=== PATIENT | female | born 1975 | race Caucasian/White ===

== ENCOUNTER 2017-04-15 15:39 | Observation (INO) ==
--- NOTE | 2017-04-15 15:59 | Emergency Department Note ---
Disposition Clinical Impression: Anginal equivalent Shoulder pain Qualifiers: Laterality: left Chronicity: acute Qualified Code(s): M25.512 - Pain in left shoulder Disposition: Admitted As Inpatient Condition: Good Referrals: Piero Hill MD [Primary Care Provider] - Forms: ED Satisfaction Letter Time of Disposition: 17:57 General Adult HPI - General Chief complaint: ED Chest Pain Stated complaint: dizziness, shoulder pain Time Seen by Provider: 04/15/17 15:46 Source: patient Mode of arrival: ambulatory Limitations: no limitations Nursing Notes Reviewed: Yes Vital Signs Reviewed: Yes - History of Present Illness HPI Narrative: 41-year-old with a history of previous MN in 2008 who comes in today stating not feeling well had some left shoulder pain. Patient states she's also been dizzy feels like the room is spinning does not feel like she is going to pass out. No History of blood clots. Pt Subjective Complaint: Dizziness left shoulder pain Onset (ago): day(s) Location: left, upper extremity Radiation: non-radiation Pain Scale: 3 Quality: aching Consistency: intermittent Improves with: nothing Worsens with: nothing - Related Data Home Medications Medication Instructions Recorded Confirmed Lipitor 12/26/15 Prozac 12/26/15 Wellbutrin 12/26/15 Advil 04/15/17 Aleve 04/15/17 Tylenol 04/15/17 Xanax 04/15/17 04/15/17 Allergies Allergy/AdvReac Type Severity Reaction Status Date / Time meperidine [From Demerol] Allergy See Verified 04/15/17 15:44 Comments All systems ED: reviewed and negative except as stated. Constitutional: Denies: fever, chills, weakness, weight change Eyes: Denies: eye pain, eye discharge, vision change ENT ED: Denies: ear pain, throat pain, dental pain, hearing loss, epistaxis, congestion, dysphagia Cardiovascular: Denies: chest pain, palpitations, dyspnea on exertion, edema, syncope Respiratory: Denies: cough, dyspnea, wheezes, hemoptysis, stridor Gastrointestinal: Denies: abdominal pain, nausea, vomiting, diarrhea, constipation, hematemesis, melena, hematochezia Genitourinary: Denies: dysuria, frequency, hematuria, discharge Musculoskeletal: Reports: arthralgia. Denies: back pain, neck pain, myalgia Integumentary: Denies: rash, abrasion, lesions Neurological: Denies: headache, weakness, numbness, paresthesias, confusion, abnormal gait, vertigo Psychiatric: Denies: anxiety, depression, suicidal thoughts, homicidal thoughts , auditory hallucinations, visual hallucinations Endocrine: Denies: fatigue Hematological/Lymphatic: Denies: easy bleeding, easy bruising Allergic/Immunologic: Denies: facial swelling, urticaria Past Medical History - Past Medical History Medical history: Reports: coronary artery disease, myocardial infarction Surgical history: Reports: non-contributory Psychiatric history: Reports: anxiety, depression - Social History Smoking Status: Never smoker Smokeless Tobacco Status: No Alcohol use: Reports: none Drug use: Reports: none Physical Exam - General Limitations: no limitations General appearance: alert, in no apparent distress - Head Head exam: atraumatic, normocephalic, normal inspection - Eye Eye exam: Present: normal appearance - ENT ENT exam: normal exam, normal oropharynx, mucous membranes moist - Neck Neck exam: Present: normal inspection, full ROM, trachea midline - Chest Chest inspection: Present: normal inspection, symmetric chest wall rise - Respiratory Respiratory exam: Present: normal lung sounds bilaterally - Cardiovascular Cardiovascular exam: Present: regular rate, normal rhythm, normal heart sounds - Abdominal Exam Abdominal exam: Present: soft, Non-Tender. Absent: tenderness, distention, guarding, rebound, rigidity - Extremities Exam Extremities exam: Present: normal inspection, full ROM. Absent: tenderness, pedal edema - Expanded Lower Extremity Exam Neurovascular/Tendon exam: Absent: motor deficit, sensory deficit, tendon deficit Gait: observed and normal - Back Exam Back exam: Present: normal inspection, full ROM. Absent: tenderness - Neurological Exam Neurological exam: Present: alert, oriented X3 - Psychiatric Psychiatric exam: Present: normal affect, normal mood - Skin Skin exam: Present: warm, dry, intact, normal color Course - Reevaluation(s) Reevaluation #1: 41-year-old female who has shoulder pain and dizziness. Patient had an MN in the past Time: 18:37 - Consultations Consultation #1: Discussed with Dr. Dumont, admit. Time: 18:38 Vital Signs Temperature 98.4 F 04/15/17 15:40 Pulse Rate 90 04/15/17 15:40 Respiratory Rate 16 04/15/17 15:40 Blood Pressure 166/87 04/15/17 15:40 O2 Sat by Pulse Oximetry 100 04/15/17 15:40 Temperature 98.4 F 04/15/17 15:40 Pulse Rate 84 04/15/17 17:01 Respiratory Rate 18 04/15/17 17:01 Blood Pressure 156/78 04/15/17 17:01 O2 Sat by Pulse Oximetry 98 04/15/17 17:01 Oxygen Delivery Oxygen Delivery Room Air Medical Decision Making - Lab Data Lab results reviewed: Yes I reviewed the patient's lab results. Result diagrams: 04/15/17 16:15 04/15/17 16:15 Lab Results 04/15/17 04/15/17 04/15/17 Range/Units 16:15 16:15 16:15 WBC 6.0 (4.3-11.1) K/mcL RBC 4.24 (3.82-4.97) M/mcL Hgb 12.6 (11.5-15.4) g/dL Hct 38.2 (35.3-44.9) % MCV 90.1 (83.0-100.0) fL MCH 29.7 (28.0-33.3) pg MCHC 33.0 (31.6-35.5) g/dL RDW 12.7 (11.5-14.5) % Plt Count 223 (140-400) K/mcL MPV 10.8 (9.4-12.4) fL Immature Gran % 0.2 (0-4) % Seg Neutrophils % 63.2 % Lymphocytes % 26.5 % Monocytes % 7.8 % Eosinophils % 1.8 % Basophils % 0.5 % Neutrophils # 3.8 (1.6-8.9) K/mcL Lymphocytes # 1.6 (0.6-4.6) K/mcL Monocytes # 0.5 (0.0-1.3) K/mcL Eosinophils # 0.1 (0.0-0.6) K/mcL Basophils # 0.0 (0.0-0.2) K/mcL PT 11.3 (9.4-12.1) Seconds INR 1.0 APTT 28.5 (26.0-36.0) Seconds D-Dimer 315 (0-500) ng/mLFEU Sodium (136-145) mEq/L Potassium (3.5-4.5) mEq/L Chloride (98-109) mEq/L Carbon Dioxide (19-29) mEq/L BUN (7-20) mg/dL Creatinine (0.57-1.11) mg/dL Est GFR ( Amer) (> 60) Est GFR (Non-Af Amer) (> 60) BUN/Creatinine Ratio (6-26) Glucose (70-99) mg/dL Calculated Osmolality (280-300) Calcium (8.6-10.8) mg/dL Troponin I (0-0.03) ng/mL B-Natriuretic Peptide 19 (0-100) pg/mL 04/15/17 04/15/17 Range/Units 16:15 16:15 WBC (4.3-11.1) K/mcL RBC (3.82-4.97) M/mcL Hgb (11.5-15.4) g/dL Hct (35.3-44.9) % MCV (83.0-100.0) fL MCH (28.0-33.3) pg MCHC (31.6-35.5) g/dL RDW (11.5-14.5) % Plt Count (140-400) K/mcL MPV (9.4-12.4) fL Immature Gran % (0-4) % Seg Neutrophils % % Lymphocytes % % Monocytes % % Eosinophils % % Basophils % % Neutrophils # (1.6-8.9) K/mcL Lymphocytes # (0.6-4.6) K/mcL Monocytes # (0.0-1.3) K/mcL Eosinophils # (0.0-0.6) K/mcL Basophils # (0.0-0.2) K/mcL PT (9.4-12.1) Seconds INR APTT (26.0-36.0) Seconds D-Dimer (0-500) ng/mLFEU Sodium 141 (136-145) mEq/L Potassium 3.6 (3.5-4.5) mEq/L Chloride 110 H (98-109) mEq/L Carbon Dioxide 23 (19-29) mEq/L BUN 11 (7-20) mg/dL Creatinine 0.98 (0.57-1.11) mg/dL Est GFR ( Amer) > 60 (> 60) Est GFR (Non-Af Amer) > 60 (> 60) BUN/Creatinine Ratio 11 (6-26) Glucose 109 H (70-99) mg/dL Calculated Osmolality 292 (280-300) Calcium 8.8 (8.6-10.8) mg/dL Troponin I 0.00 (0-0.03) ng/mL B-Natriuretic Peptide (0-100) pg/mL - Radiology Data Radiology results reviewed: Yes I reviewed the patient's radiology results. Chest X-Ray 04/15/17 15:56 IMPRESSION: Negative chest. D/ / 04/15/2017 16:22:35 Iban Pantoja MD / kalin Interpreting Provider: Iban Pantoja MD - EKG Data EKG #1 EKG attestation: Yes I reviewed and interpreted this EKG. EKG shows normal: sinus rhythm Rate: normal Rhythm: NSR Interpretation: no acute changes
[2017-04-15 16:52] LABS: Basophils % 0.5 %; Eosinophils # 0.1 K/mcL (0.0-0.6); Eosinophils % 1.8 %; Hematocrit 38.2 % (35.3-44.9); Hemoglobin 12.6 g/dL (11.5-15.4); Immature Granulocytes % 0.2 % (0-4); Lymphocytes # 1.6 K/mcL (0.6-4.6); Lymphocytes % 26.5 %; Mean Corpuscular Hemoglobin 29.7 pg (28.0-33.3); Mean Corpuscular Volume 90.1 fL (83.0-100.0); Mean Platelet Volume 10.8 fL (9.4-12.4); Monocytes # 0.5 K/mcL (0.0-1.3); Monocytes % 7.8 %; Neutrophils # 3.8 K/mcL (1.6-8.9); Platelet Count 223 K/mcL (140-400); Red Blood Count 4.24 M/mcL (3.82-4.97); Red Cell Distribution Width 12.7 % (11.5-14.5); Segmented Neutrophils % 63.2 %
[2017-04-15 17:00] LABS: Prothrombin Time 11.3 Seconds (9.4-12.1)
[2017-04-15 17:02] LABS: Activated Partial Thrombo Time 28.5 Seconds (26.0-36.0)
[2017-04-15 17:07] LABS: BUN/Creatinine Ratio 11 (6-26); Blood Urea Nitrogen 11 mg/dL (7-20); Calcium 8.8 mg/dL (8.6-10.8); Carbon Dioxide 23 mEq/L (19-29); Chloride 110 mEq/L (98-109); Glucose 109 mg/dL (70-99); Osmolality,Calculated 292 (280-300); Potassium 3.6 mEq/L (3.5-4.5); Sodium 141 mEq/L (136-145); eGFR For African Americans > 60 (> 60); eGFR For Non-African Americans > 60 (> 60)
[2017-04-15] MEDS ORDERED: Ondansetron 4 MG/2 ML VIAL IVP ONE (18:14)
[2017-04-15] MEDS ORDERED: *HR* HYDROcodone/Acet 5/325 mg TABLET PO PRN (21:49)
[2017-04-15] MEDS ORDERED: Ondansetron ODT 4 MG TAB.RAPDIS SL PRN (21:49)
[2017-04-15] MEDS ORDERED: Naloxone 0.4 MG/ML INJ IVP PRN (21:49)
--- NOTE | 2017-04-15 22:07 | Internal Med History&Physical ---
Date of Encounter: 04/15/17 Time of Encounter: 22:00 Assessment and Plan (1) Atypical chest pain Current visit: No Status: Acute 1 patient has past history of AR with bilateral arm numbness as angina equivalent. For the past week patient has been experiencing shoulder blade as well as left shoulder pain diaphoresis - which is similar to previous symptoms. First cardiac troponin was negative with continue to cycle cardiac troponins 2 we will obtain cardiac echo 3 continuous cardiac monitoring 4 continue with aspirin 5 nitroglycerin as needed for chest pain 6 oxygen as needed to maintain SPO2 greater than 92% 7 we will obtain lipid profile in a.m. 8. Nothing by mouth after midnight-cardiac stress in a.m. (2) Anxiety and depression Current visit: Yes Status: Chronic We will continue with home medications (3) DVT prophylaxis Current visit: Yes Status: Acute 1 Lovenox (4) Hypercholesterolemia Current visit: Yes Status: Acute 1 will obtain lipid profile 2 we will continue his Lipitor Internal Medicine - H&P: HPI Chief complaint: Shoulder pain Admitted From: Emergency Dept Plans for Post Hospital Care: Home History of present illness: Ms. Bauer is a 41 year old female past medical history AR in the past GERD anxiety depression. Information obtained from medical records as well as patient. According to past medical records patient did have a ST elevation microinfarction secondary to coronary vasospasm 2009. 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 On 2009, the day of the AR, patient had indigestion bilateral arm numbness nausea and diaphoresis. For the past week the patient has been experiencing achiness between her shoulder blades radiating to her left shoulder as well as some nausea and lightheadedness. Yesterday she began to experience some diaphoresis she denies any palpitations shortness of breath. The pain is aggravated by exertion there are no relieving factors presently rates the pain 3 out of 10 she became concerned because the pain was not relieved who was very similar to her previous AR. Patient states she did have a cardiac stress test 3 years ago which was negative at that time She presented to the ER for the above complaints. Lab work was obtained and was unremarkable troponin was 0 chest x-ray was negative no ST-T wave abnormalities. She was given Zofran for her nausea she is admitted for further evaluation. Presently patient rates her pain 3 out of 10 describing achiness in her left shoulder she denies any shortness of breath dictations. Lungs sounds are clear heart sounds S1 and S2 with no rubs or clicks gallops or murmurs noted no extremity edema. I reviewed this case with Dr Jimenez who agrees with plan Past Med Surg Social Fam HX - Past Medical History Medical history: coronary artery disease, myocardial infarction Psychiatric history: anxiety, depression - Past Surgical History Surgical History: non-contributory - Social History Smoking Status: Never smoker Smokeless Tobacco Status: No Alcohol use: none Drug use: none - Family History Mother Living Status: Still Living Hx Family Cardiac Disorders: Yes (mitral valve prolapse) Internal Medicine - H&P: Meds Lipitor 12/26/15 [History] Prozac 12/26/15 [History] Wellbutrin 12/26/15 [History] Advil 04/15/17 [History] Aleve 04/15/17 [History] Tylenol 04/15/17 [History] Xanax 04/15/17 [History] Allergies meperidine [From Demerol] Allergy (Verified 04/15/17 15:44) See Comments All Systems PM: A 10-system review of systems was performed and is negative for pertinent findings except as documented above in the HPI. - Constitutional Constitutional: anorexia, no chills, no fever(s), no night sweats - Cardiovascular Cardiovascular ROS IM: diaphoresis, lightheadedness - Respiratory Respiratory: no cough, no dyspnea, no wheezing, no excessive phlegm production - Gastrointestinal Gastrointestinal: no abdominal pain, no diarrhea, no hematemesis, no hematochezia, no melena, no nausea, no vomiting - Genitourinary Genitourinary: no change in urinary stream, no dysuria, no flank pain, no hematuria - Musculoskeletal Musculoskeletal ROS IM: arthralgias, numbness - Integumentary Integumentary IM: no rash, no unusual bruising - Neurological Neurological ROS: no confusion, no convulsions, no focal weakness, no numbness, no tingling, no tremor(s) - Psychiatric Psychiatric: anxiety, depression - Constitutional Vitals: Temp Pulse Resp BP Pulse Ox 98.9 F 66 14 138/69 97 04/15/17 19:46 04/15/17 19:46 04/15/17 19:46 04/15/17 19:46 04/15/17 19:46 General appearance: Present: A&O X 3, answers questions appropriately - Head Head exam: Present: atraumatic, normocephalic - Eye Eye exam: Present: PERRL, conjuntiva pink, sclera anicteric Pupils: Present: PERRL - Respiratory Respiratory exam: Present: CTAB. Absent: accessory muscle use, rales, rhonchi, wheezes - Cardiovascular Cardiovascular exam: Present: RRR, +S1, +S2. Absent: diastolic murmur, gallop, rubs, systolic murmur - GI/Abdominal GI/Abdominal exam: Present: normal bowel sounds, soft, no peritoneal signs. Absent: distended, tenderness - Extremities Exam Extremities exam: Present: warm, radial pulses palpable and symetrical. Absent : calf tenderness, cyanotic, pedal edema - Expanded Upper Extremities Exam Shoulder exam: Present: tenderness - Neurological Exam Neurological exam: Present: CN II-XII intact, oriented X3, no focal deficits. Absent: pronater drift, facial droop, speech deficit - Skin Skin exam: Present: dry, intact Internal Med - H&P Results - Labs CBC & Chem 7: 04/15/17 16:15 04/15/17 16:15 - EKG Data EKG shows normal: sinus rhythm - EKG Data Prior EKG available for review: yes When compared to previous EKG: there are significant changes - Diagnostic Studies Other Images Additional comments: Chest X-Ray 04/15/17 15:56 IMPRESSION: Negative chest. D/ / 04/15/2017 16:22:35 Iban Pantoja MD / kalin Interpreting Provider: Iban Pantoja MD
[2017-04-15] MEDS ORDERED: Aspirin 325 MG TABLET PO ONE (22:10)
[2017-04-15] MEDS ORDERED: Nitroglycerin 0.4 MG TAB.SUBL SL PRN (22:11)
--- NOTE | 2017-04-15 23:40 | Event Note ---
Date of Encounter: 04/15/17 Time of Encounter: 23:10 Patient seen and evaluated along with nurse practitioner. I agree with detailed history, assessment and plan according to nurse practitioner's H&P, except to the extent set forth below. 41-year-old female with history of chest pain related to coronary spasm, presents with complaints of a left-sided upper back and shoulder pain associated with diaphoresis, shortness of breath, nausea, which are similar to previous episodes of chest pain due to coronary vasopasm. Patient seen and examined at bedside. She is alert, oriented 3. Chest-S1, S2 heard. Lungs are clear to auscultation Labs reviewed-CBC, BMP within normal limits. Troponin, d-dimer normal. EKG shows normal sinus rhythm, 0.[address] depression in lead V3 Chest x-ray shows no acute abnormality Chest pain-to rule out ACS. Review of previous records show patient had episodes of chest pain in 2009 and she was noted to have Prinzmetal angina after undergoing stress test, cardiac catheterization. She was started on Imdur and statin and followed with cardiology as outpatient for a short while, not at this time. Continue telemetry monitoring, cycle troponins. We will obtain nuclear stress test tomorrow, hold nitroglycerin and Imdur until after the test. Start aspirin and continue statin. Check lipid profile.
[2017-04-16 05:20] LABS: Basophils % 0.6 %; Eosinophils # 0.1 K/mcL (0.0-0.6); Eosinophils % 2.8 %; Hematocrit 36.9 % (35.3-44.9); Hemoglobin 12.3 g/dL (11.5-15.4); Immature Granulocytes % 0.2 % (0-4); Lymphocytes # 1.7 K/mcL (0.6-4.6); Lymphocytes % 34.6 %; Mean Corpuscular HGB Conc 33.3 g/dL (31.6-35.5); Mean Corpuscular Hemoglobin 30.5 pg (28.0-33.3); Mean Corpuscular Volume 91.6 fL (83.0-100.0); Mean Platelet Volume 11.1 fL (9.4-12.4); Monocytes # 0.4 K/mcL (0.0-1.3); Monocytes % 8.2 %; Neutrophils # 2.7 K/mcL (1.6-8.9); Platelet Count 212 K/mcL (140-400); Red Blood Count 4.03 M/mcL (3.82-4.97); Red Cell Distribution Width 12.9 % (11.5-14.5); Segmented Neutrophils % 53.6 %
[2017-04-16 05:35] LABS: BUN/Creatinine Ratio 17 (6-26); Blood Urea Nitrogen 16 mg/dL (7-20); Calcium 8.9 mg/dL (8.6-10.8); Carbon Dioxide 22 mEq/L (19-29); Chloride 111 mEq/L (98-109); Chol/HDL Ratio 3.7 (0-4.9); Cholesterol 181 mg/dL (< 200); Glucose 93 mg/dL (70-99); HDL Cholesterol 49 mg/dL (40-59); LDL Cholesterol,Calculated 109 mg/dL (0-99); Magnesium 2.3 mg/dL (1.6-2.6); Osmolality,Calculated 293 (280-300); Potassium 3.9 mEq/L (3.5-4.5); Sodium 141 mEq/L (136-145); Triglycerides 117 mg/dL (< 150); eGFR For African Americans > 60 (> 60); eGFR For Non-African Americans > 60 (> 60)
[2017-04-16] MEDS: Acetaminophen 325 MG TABLET PO PRN ×2 (10:39→20:45)
[2017-04-16] MEDS: Aspirin 81 MG TAB.CHEW PO SCH (10:39)
--- NOTE | 2017-04-16 13:12 | Nuclear Medicine Stress Report ---
Exercise Nuclear Stress Name: Stephany Bauer Date of Study: 04/16/2017 Date: 1975 Ht: 67.0 in Medical Record#: [id number] Age: 41 Wt: 180.0 lb Gender: Female Order #: [id number] Location: [facility] IP Room: [facility] Supervising Provider: Stewart Morris CNP Reading Physician: Michael Weber MD, [facility] Ordering Physician: Lydia Schneider CNP Primary Care Physician: Piero Hill MD Stress Technologist: Jarrod Cody RRT, CCT Property Field Inspector: Hi Elias Indications: Chest Pain Impression: Perfusion imaging was negative for ischemia or infarct. Exercise ECG was positive for ischemia - 1mm inferior changes Exercise capacity was average. Normal hemodynamic response. Patient had no chest pain with stress. No arrhythmias noted with stress. Gated EF = 65%. There is no evidence of TID. History: Hypercholesteremia Stress Test Summary: Stress Test Type: Treadmill Protocol: Michael Baseline Information: Initial Heart Rate: 71 Blood Pressure: 136/90 Stress Information: Stress Time: 9 min 00 sec Test Terminated Due to (primary): Dyspnea Maximum Blood Pressure: 180/90 Maximum Heart Rate: 160 Percent Maximum Heart Rate Achieved: 90 Double Product: 28,800 METS Reached: 10.1 Nuclear Summary: SPECT myocardial perfusion imaging using Tc99m Sestamibi given intravenously was performed at rest and following cardiac stress testing. The resting images were obtained following initial dose of 10.3 mCi. Following stress an additional dose of 32.1 mCi was given at peak exercise or 30 seconds post regadenoson infusion. Medication Given: Time Medication Dose Units Route Findings: Stress Note * Resting ECG demonstrated normal sinus rhythm. * No baseline arrhythmias were noted. * Exercise ECG is positive for ischemia in leads II-III-AVF * No arrhythmias were noted during stress. * The exercise capacity was average. Study Quality * Study quality is average. Gated EF % * Gated EF = 65%. Left Ventricle * The left ventricle is not dilated. NORMALS * Normal wall motion. * All other segmental perfusion normal in rest. * All other segmental perfusion normal in stress. Apical Perfusion Rest * The apex segment shows a mild reduction in perfusion. Apical Perfusion Stress * The apex segment shows a mild reduction in perfusion. TID * No evidence of transient ischemic dilatation. Updated by Michael Weber MD, FACC on 04/16/2017 1:02:36 PM electronically signed on 04/16/2017 1:08:14 PM with status of Final
--- NOTE | 2017-04-16 13:49 | ECHO - Doppler Report ---
Echocardiogram Name: Stephany Bauer Date of Study: 04/16/2017 Date: 1975 Ht: 67.0 in Medical Record#: [id number] Age: 41 Wt: 178.0 lb Gender: Female BSA: 1.92 Order #: [id number] Location: [facility] Room #: [id number] Reading Physician: Michael Weber MD, [facility] Marketing Sales Manager: Watson Cazares RDCS Ordering Physician: Gracy Santamaria CNP Primary Physician: Piero Hill MD Indications: Chest pain Impressions: No pulmonary hypertension. LVEF 60-65%. Indeterminate diastolic function. The aortic arch is mildly dilated - 4.2 cm. Suspicious for aortic dissection flap No significant valvular dysfunction. Findings relayed to ordering team, recommend CT chest to evaluate Left Ventricular Wall Motion: Rest Echo Findings All wall segments showed normal motion. Findings: Study Quality * Technically adequate exam. Right Ventricle * Normal right ventricular structure and function. Left Atrium * Normal left atrial size. Right Atrium * Normal right atrial size. Aortic Valve * Trileaflet aortic valve with normal function. Interatrial Septum * No evidence of PFO by color Doppler. Pericardium * The pericardium appears normal. ECG Findings * Normal sinus rhythm. Tricuspid Valve * Estimated RA pressure is 3-5 mmHg. * No pulmonary hypertension. * No tricuspid stenosis. * Trace tricuspid regurgitation. * Estimated RVSP is 25 mmHg. Left Ventricle * LVEF 60-65%. * Indeterminate diastolic function. Pulmonic Valve * Pulmonic valve is not well visualized. * No pulmonic stenosis. * No pulmonic regurgitation. Mitral Valve * Normal mitral valve structure. * No mitral stenosis. * Trace mitral regurgitation. Aorta * The aortic arch is mildly dilated 4.2 cm. Suspicion for aortic dissection flap History Hypercholesteremia Family History of CAD Myocardial Infarction Measurements: BP: 125/ 75 2D Normal Values RVIDd: 2.67 cm <2.7 cm IVSd: .84 cm 0.6 - 1.0 cm LVIDd: 5.14 cm 3.7 - 5.6 cm LVPWd: .78 cm 0.6 - 1.1 cm LVIDs: 3.44 cm 1.5 - 3.6 cm AO: 2.70 cm < 4.0 cm LA: 2.90 cm 2.0 - 4.0cm %FS: 33.10 cm >25 % LA volume: 57 Mitral Valve Peak E:.85 m/sec Peak A:.73 m/sec E/A Ratio:1.2 Peak E' Lat Malachi:14.8 cm/s Peak E' Med Malachi:8.05 cm/s E/E' Lat Ratio:5.7 E/E' Med Ratio:10.5 Tricuspid Valve TV Regurg Peak Grad: 25.00mmHg TV Regurg Peak Malachi: 2.35m/sec Updated by Michael Weber MD, [facility] on 04/16/2017 1:33:28 PM electronically signed on 04/16/2017 1:42:48 PM with status of Final Wall Motion [place]: 1=Normal, 2=Hypokinesis, 3=Akinesis, 4=Dyskinesis, 5=Aneurysmal, 6=Hyperkinetic, X=Not Visualized (Blank)=Missing
--- NOTE | 2017-04-16 17:01 | Internal Med Progress Note ---
Date of Encounter: 04/16/17 Time of Encounter: 14:00 (and 1630) - Assessment and plan (1) Atypical chest pain Current Visit: No Status: Acute Assessment and plan: Patient complaining of left shoulder pain. Suspicious for anginal equivalent. Chest x-ray negative. Echocardiogram revealing ejection fraction of 60-65% but with dilated aortic arch and the suspicion for aortic dissection flap. CTA was obtained which ruled out a dissection. Stress test also abnormal with ischemic changes with the exercise ECG. Cardiology has been brought on board and will see the patient in the morning. Nothing by mouth at midnight for possible heart catheter tomorrow. 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 Her pain is currently controlled with acetaminophen. Awaiting cardiology recommendations in the morning. ITS Impressions Chest X-Ray 04/15/17 15:56 IMPRESSION: Negative chest. D/ / 04/15/2017 16:22:35 Iban Pantoja MD / kalin Interpreting Provider: Iban Pantoja MD Abdomen/Pelvis CTA 04/16/17 13:46 IMPRESSION: No aortic dissection. No acute abnormality in the aorta, chest, abdomen or pelvis. D/ / Chintan Herzog MD / Chintan Herzog MD Interpreting Provider: Chintan Herzog MD Chest CTA 04/16/17 13:46 IMPRESSION: No aortic dissection. No acute abnormality in the aorta, chest, abdomen or pelvis. D/ / Chintan Herzog MD / Chintan Herzog MD Interpreting Provider: Chintan Herzog MD Echocardiogram impressions: No pulmonary hypertension. LVEF 60-65%. Indeterminate diastolic function. The aortic arch is mildly dilated-4.2 cm. Suspicious for aortic dissection flap. No significant valvular dysfunction. Recommend CT chest to evaluate. Exercise nuclear stress impressions: Perfusion imaging was negative for ischemia or infarct. Exercise ECG was positive for ischemia-1 mm inferior changes. Exercise capacity was average. Normal hemodynamic response. Patient had no chest pain with stress. No arrhythmias noted with stress. Elisa ejection fraction equals 65%. There is no evidence of TID. (2) Anginal equivalent Current Visit: Yes Status: Suspected (3) Abnormal stress ECG Current Visit: Yes Status: Acute (4) Abnormal echocardiogram Current Visit: Yes Status: Acute (5) Shoulder pain Current Visit: Yes Status: Acute (6) DVT prophylaxis Current Visit: Yes Status: Acute Assessment and plan: Subcutaneous heparin (7) Hyperlipidemia Current Visit: No Status: Chronic Assessment and plan: Lipid panel unremarkable. Recommend continue statin and low-cholesterol diet. Qualifiers: Hyperlipidemia type: unspecified Qualified Code(s): E78.5 - Hyperlipidemia , unspecified (8) Anxiety and depression Current Visit: Yes Status: Chronic - Subjective Interval history: Patient is seen and examined. On examination, patient sitting upright in bed conversing with her . She continues to complain of left shoulder pain. She is endorsing a normal appetite and denies shortness of breath at this time. - Constitutional Vitals: Temp Pulse Resp BP Pulse Ox 98.4 F 76 16 138/74 99 04/16/17 14:43 04/16/17 14:43 04/16/17 14:43 04/16/17 14:43 04/16/17 14:43 General appearance: Present: A&O X 3, pleasant, no acute distress, answers questions appropriately - Head Head exam: Present: atraumatic, normocephalic - Eye Eye exam: Present: PERRL, conjuntiva pink, sclera anicteric Pupils: Present: PERRL - Neck Neck exam general surgery: Present: supple, trachea midline. Absent: lymphadenopathy - Respiratory Respiratory exam: Present: CTAB. Absent: accessory muscle use, rales, respiratory distress, rhonchi, wheezes - Cardiovascular Cardiovascular exam: Present: RRR, +S1, +S2. Absent: diastolic murmur, gallop, rubs, systolic murmur - GI/Abdominal GI/Abdominal exam: Present: normal bowel sounds, soft, no peritoneal signs. Absent: distended, tenderness - Extremities Exam Extremities exam: Present: warm, radial pulses palpable and symetrical. Absent : calf tenderness, cyanotic, pedal edema - Neurological Exam Neurological exam: Present: alert, CN II-XII intact, normal gait, oriented X3, no focal deficits, strengths equal and symetr throughout. Absent: pronater drift, facial droop, speech deficit - Skin Skin exam: Present: dry, intact, normal color, warm Internal Medicine: Result - Labs CBC & Chem 7: 04/16/17 04:00 04/16/17 04:00 Labs: Short CBC 04/16/17 Range/Units 04:00 WBC 5.0 (4.3-11.1) K/mcL Hgb 12.3 (11.5-15.4) g/dL Hct 36.9 (35.3-44.9) % Plt Count 212 (140-400) K/mcL Neutrophils # 2.7 (1.6-8.9) K/mcL BMP 04/16/17 04:00 Sodium 141 Potassium 3.9 Chloride 111 H Carbon Dioxide 22 BUN 16 Creatinine 0.92 Glucose 93 Calcium 8.9 Cardiac Enzymes 04/15/17 04/16/17 Range/Units 22:29 04:00 Troponin I 0.00 0.00 (0-0.03) ng/mL - ABG Interpretation ABG results: PT/INR, D-dimer PT 11.3 Seconds (9.4-12.1) 04/15/17 16:15 D-Dimer 315 ng/mLFEU (0-500) 04/15/17 16:15 - Impressions Impressions Abdomen/Pelvis CTA 04/16/17 13:46 IMPRESSION: No aortic dissection. No acute abnormality in the aorta, chest, abdomen or pelvis. D/ / Chintan Herzog MD / Chintan Herzog MD Interpreting Provider: Chintan Herzog MD Chest CTA 04/16/17 13:46 IMPRESSION: No aortic dissection. No acute abnormality in the aorta, chest, abdomen or pelvis. D/ / Chintan Herzog MD / Chintan Herzog MD Interpreting Provider: Chintan Herzog MD Consult Discharge Plan - Plan Referrals: Piero Hill MD [Primary Care Provider] -
[2017-04-16] MEDS ORDERED: *HR* Morphine 2 MG/ML SYRINGE IVP PRN (17:04)
[2017-04-16] MEDS ORDERED: ALPRAZolam 0.25 MG TABLET PO PRN (19:52)
--- NOTE | 2017-04-16 20:30 | Electrocardiograph Report ---
[address] [address] Test Date: 2017-04-15 Pat Name: Stephany Bauer Department: 102 Room: 3B44 Gender: F Guest Services Coordinator: : 1975 Requested By: Chad Jerez Order Number: [id number] Reading MD: Michael Weber MD Measurements Intervals [place] Rate: 76 P: 49 [place]: 126 QRS: 35 QRSD: 82 T: 25 QT: 360 QTc: 391 Interpretive Statements SINUS RHYTHM Electronically Signed On 04-16-2017 20:28:41 EDT by Michael Weber MD
[2017-04-16] MEDS: *HR* Heparin 5,000 UNIT/ML VIAL SQ SCH (20:46)
[2017-04-16] MEDS: BuPROPion XL (24 HR) 150 MG TABLET PO SCH (20:46)
[2017-04-17 05:58] LABS: INR 1.1; Prothrombin Time 11.6 Seconds (9.4-12.1)
[2017-04-17] MEDS: *HR* Heparin 5,000 UNIT/ML VIAL SQ SCH ×2 (06:09→14:21)
[2017-04-17 06:11] LABS: BUN/Creatinine Ratio 15 (6-26); Blood Urea Nitrogen 13 mg/dL (7-20); Calcium 8.8 mg/dL (8.6-10.8); Carbon Dioxide 20 mEq/L (19-29); Chloride 110 mEq/L (98-109); Glucose 90 mg/dL (70-99); Osmolality,Calculated 290 (280-300); Potassium 3.6 mEq/L (3.5-4.5); Sodium 140 mEq/L (136-145); eGFR For African Americans > 60 (> 60); eGFR For Non-African Americans > 60 (> 60)
[2017-04-17] MEDS: Acetaminophen 325 MG TABLET PO PRN (06:16)
[2017-04-17] MEDS ORDERED: Cholecalciferol (D-3) 1,000 UNIT TABLET PO SCH (09:00)
--- NOTE | 2017-04-17 10:40 | Cardiology Consult Note ---
Date of Encounter: 04/17/17 Time of Encounter: 10:36 Assessment and Plan (1) Shoulder pain Current Visit: Yes Status: Acute Left shoulder pain ongoing for 1 week--constant, not associated with exertion. Denies chest pain. Reports her left shoulder and arm feel weak. Do not suspect this is a cardiac cause. Would recommend imaging per hospitalist for shoulder complaints. EKG without ischemic changes/improved from prior. Echo EF 60-65%. Stress ECG positive for ischemia-1mm inferior changes, but perfusion imaging negative for ischemia or infarct. Given atypical symptoms and negative perfusion imaging on stress, do not recommend any further cardiac testing at this time. Anticipate sign off once seen and evaluated by Dr. Weber. Will coordinate outpt follow-up. Qualifiers: Laterality: left Chronicity: acute Qualified Code(s): M25.512 - Pain in left shoulder (2) Abnormal stress ECG Current Visit: Yes Status: Acute Stress ECG positive for ischemia-1mm inferior changes, but perfusion imaging negative for ischemia or infarct. Recommend outpt follow-up. No need for invasive evaluation at this time. (3) CAD (coronary artery disease) Current Visit: Yes Status: Acute Hx of LHC in 2008 at [place]. Per [facility] records, mild CAD. Recommend ASA, Statin, BB. Qualifiers: Coronary Disease-Associated Artery/Lesion type: [place] artery [place] vs. transplanted heart: [place] heart Associated angina: angina presence unspecified Qualified Code(s): I25.10 - Atherosclerotic heart disease of [place] coronary artery without angina pectoris Discussion w patient/family: The assessment and plan as outlined above was discussed with the patient and/or family members who expressed understanding and agreement. All questions were answered. Thank you for involving us in the care of your patient. Please call with any questions. I will discuss all the above with Dr. Weber and make changes as necessary. History of Present Illness Consult date: 04/17/17 Requesting physician: Lydia Schneider Consult reason: left shoulder pain, positive stress ECG Chief complaint: left shoulder pain History of present illness: Ms. Bauer is a 41 year old female with PMH of CA in 2009, GERD, anxiety, depression. According to past medical records patient did have a STEMI secondary to coronary vasospasm in 2009. LHC in [place] at that time showed mild CAD-Prinzmetal angina. Pt reports she began experiencing left shoulder pain last week that has been constant, not worsened or improved by anything. She began to experience diaphoresis. Echo resulted and showed EF 60-65%. Stress test resulted yesterday. Perfusion imaging was negative for ischemia or infarct. She did have positive stress ECG changes--1mm inferior. Past Med Surg Social Fam HX - Past Medical History Medical history: coronary artery disease, myocardial infarction Psychiatric history: anxiety, depression - Past Surgical History Surgical History: non-contributory - Social History Smoking Status: Never smoker Smokeless Tobacco Status: No Alcohol use: none Drug use: none - Family History Mother Hx Family Cardiac Disorders: Yes (Mitral Prolapse, HLD, HTN) Medications and Allergies ALPRAZolam [Xanax 0.25 MG Tablet] 0.25 - 0.5 mg PO BID PRN 04/16/17 [History] Acetaminophen [Tylenol] 500 mg PO Q6H PRN 04/16/17 [History] Atorvastatin Calcium [Lipitor] 20 mg PO HS 04/16/17 [History] Bupropion HCl [Wellbutrin Xl] 300 mg PO DAILY 04/16/17 [History] Cholecalciferol (D-3) [Vitamin D] 1,000 unit PO DAILY 04/16/17 [History] FLUoxetine HCl [PROzac] 60 mg PO DAILY 04/16/17 [History] Ibuprofen [Advil] 200 mg PO Q8H PRN 04/16/17 [History] Naproxen Sodium [Aleve] 220 mg PO Q12H PRN 04/16/17 [History] Omeprazole [PriLOSEC] 20 mg PO DAILY 04/16/17 [History] Allergies meperidine [From Demerol] Allergy (Verified 04/15/17 15:44) See Comments All Systems Review: A 10-system review of systems was performed and is negative for pertinent findings except as documented above in the HPI. - Constitutional Constitutional: fatigue - Cardiovascular Cardiovascular: as per HPI, diaphoresis, radiating jaw, neck or arm pain - Gastrointestinal Gastrointestinal: nausea Physical Examination Vital Signs, Last 4 Hours Temp Pulse Resp BP Pulse Ox 04/17/17 07:42 98.4 F 67 16 107/59 98 Vital Signs Temp Pulse Resp BP Pulse Ox 04/17/17 07:42 98.4 F 67 16 107/59 98 04/17/17 03:07 98.2 F 81 16 111/71 98 04/16/17 22:21 98.7 F 74 16 128/73 97 04/16/17 20:30 99 04/16/17 18:28 98.6 F 73 16 132/81 99 04/16/17 14:43 98.4 F 76 16 138/74 99 04/16/17 10:58 98.1 F 73 16 130/79 95 Intake and Output 04/16/17 04/17/17 04/17/17 23:59 07:59 15:59 Other: Meal NPO Weight 82.69 kg Patient Weight 04/17/17 23:59 Weight 82.69 kg General: Conversant, No Apparent Distress HEENT: Atraumatic, Normocephaly, Mucus Membranes Moist Neck: No JVD, Normal carotid pulses Cardiac: Reg Rate and Rhythm, Normal S1 and S2, No Murmur Lungs: Normal Breath Sounds, No Wheeze, Rales, Rhonchi Neuro: Alert and responsive, No focal deficits noted Abdomen: Soft, Non-Tender Skin: No rashes noted on visualized skin Musculoskeletal: No Chest Wall Tenderness Extremities: No Clubbing, No Cyanosis, No Edema, Normal Pulses Results 04/16/17 04:00 04/17/17 05:05 Lab Results 04/17/17 04/17/17 05:05 05:05 INR 1.1 Sodium 140 Potassium 3.6 Chloride 110 H Carbon Dioxide 20 BUN 13 Creatinine 0.86 Glucose 90 Calcium 8.8 BMP 04/17/17 Range/Units 05:05 Sodium 140 (136-145) mEq/L Potassium 3.6 (3.5-4.5) mEq/L Chloride 110 H (98-109) mEq/L Carbon Dioxide 20 (19-29) mEq/L BUN 13 (7-20) mg/dL Creatinine 0.86 (0.57-1.11) mg/dL Glucose 90 (70-99) mg/dL Calcium 8.8 (8.6-10.8) mg/dL Impressions Chest X-Ray 04/15/17 15:56 IMPRESSION: Negative chest. D/ / 04/15/2017 16:22:35 Iban Pantoja MD / kalin Interpreting Provider: Iban Pantoja MD Abdomen/Pelvis CTA 04/16/17 13:46 IMPRESSION: No aortic dissection. No acute abnormality in the aorta, chest, abdomen or pelvis. D/ / Chintan Herzog MD / Chinatn Herzog MD Interpreting Provider: Chintan Herzog MD Chest CTA 04/16/17 13:46 IMPRESSION: No aortic dissection. No acute abnormality in the aorta, chest, abdomen or pelvis. D/ / Chintan Herzog MD / Chintan Herzog MD Interpreting Provider: Chintan Herzog MD Active Medications Acetaminophen (Tylenol) 650 mg PO Q6HR PRN PRN Reason: Mild Pain (1-3) Stop: 10/15/17 21:50 Last Admin: 04/17/17 06:16 Dose: 650 mg Acetaminophen/Hydrocodone Bitart ([place] 5-325 Mg) 1 tab PO Q4HR PRN PRN Reason: Moderate Pain (4-6) Stop: 10/15/17 21:50 Alprazolam (Xanax) 0.25 - 0.5 mg PO BID PRN; Protocol PRN Reason: Anxiety Stop: 10/16/17 19:53 Aspirin (Aspirin) 81 mg PO DAILY [facility] Stop: 10/16/17 09:01 Last Admin: 04/16/17 10:39 Dose: 81 mg Atorvastatin Calcium (Lipitor) 40 mg PO HS [facility] Stop: 10/15/17 22:31 Last Admin: 04/16/17 20:46 Dose: 40 mg Bupropion HCl (Wellbutrin Xl) 300 mg PO DAILY [facility] Stop: 10/16/17 20:01 Last Admin: 04/16/17 20:46 Dose: 300 mg Fluoxetine HCl (Prozac) 60 mg PO DAILY [facility] Stop: 10/17/17 09:01 Heparin Sodium (Porcine) (Heparin) 5,000 unit SQ Q8HCO [facility] Stop: 10/16/17 22:01 Last Admin: 04/17/17 06:09 Dose: 5,000 unit Morphine Sulfate (Morphine Sulfate) 2 mg IVP Q4HR PRN PRN Reason: Severe Pain Stop: 10/16/17 17:05 Naloxone HCl (Narcan) 0.4 mg IVP Q2MIN PRN PRN Reason: Opioid Reversal Stop: 10/15/17 21:50 Omeprazole (Prilosec) 20 mg PO DAILY [facility] PRN Reason: Protocol Stop: 10/17/17 09:01 Ondansetron HCl (Zofran Odt) 4 mg SL Q8HR PRN PRN Reason: Nausea And Vomiting Stop: 10/15/17 21:50 Vitamin D (Vitamin D) 1,000 unit PO DAILY [facility] Stop: 10/17/17 09:01 - Imaging and Cardiology Stress Test: report reviewed Echo: report reviewed - EKG Interpretation EKG results cardiology: personally reviewed Consult Discharge Plan - Plan Referrals: Piero Hill MD [Primary Care Provider] - 04/21/17 1:15 pm
[2017-04-17] MEDS: Aspirin 81 MG TAB.CHEW PO SCH (13:05)
[2017-04-17] MEDS: BuPROPion XL (24 HR) 150 MG TABLET PO SCH (13:05)
[2017-04-17] MEDS ORDERED: Ketorolac 15 MG/ML VIAL IVP ONE (13:30)
[2017-04-17] MEDS: FLUoxetine HCl Oral Soln 20 MG/5 ML UDC PO SCH ×2 (15:06→15:24)
[2017-04-17 15:19] VITALS: BP 142/77
--- NOTE | 2017-04-17 15:32 | Discharge Summary ---
Date of Encounter: 04/17/17 Time of Encounter: 14:00 - Discharge Diagnosis (1) Atypical chest pain Priority: Primary Status: Ruled-out Comments: Patient was cleared by cardiology who surmised this was not likely cardiac etiology. Patient still had left shoulder pain on day of discharge, consistent with musculoskeletal etiology. Chest x-ray clears well. Patient denies shortness of breath. Follow-up outpatient. (2) Anginal equivalent Priority: Primary Status: Ruled-out (3) Abnormal stress ECG Priority: Primary Status: Ruled-out (4) Abnormal echocardiogram Priority: Primary Status: Ruled-out (5) Shoulder pain Priority: Primary Status: Acute (6) DVT prophylaxis Priority: Primary Status: Acute Comments: Subcutaneous heparin while admitted (7) Hyperlipidemia Priority: Secondary Status: Chronic Comments: Lipid panel unremarkable. Recommend continue statin and low-cholesterol diet. Qualifiers: Hyperlipidemia type: unspecified Qualified Code(s): E78.5 - Hyperlipidemia , unspecified (8) Anxiety and depression Priority: Secondary Status: Chronic - Discharge Medications Home Medications: ALPRAZolam [Xanax 0.25 MG Tablet] 0.25 - 0.5 mg PO BID PRN 04/16/17 [History] Acetaminophen [Tylenol] 500 mg PO Q6H PRN 04/16/17 [History] Atorvastatin Calcium [Lipitor] 20 mg PO HS 04/16/17 [History] Bupropion HCl [Wellbutrin Xl] 300 mg PO DAILY 04/16/17 [History] Cholecalciferol (D-3) [Vitamin D] 1,000 unit PO DAILY 04/16/17 [History] FLUoxetine HCl [Prozac] 60 mg PO DAILY 04/16/17 [History] Ibuprofen [Advil] 200 mg PO Q8H PRN 04/16/17 [History] Naproxen Sodium [Aleve] 220 mg PO Q12H PRN 04/16/17 [History] Omeprazole [PriLOSEC] 20 mg PO DAILY 04/16/17 [History] Allergies/Adverse Reactions: Allergies meperidine [From Demerol] Allergy (Verified 04/15/17 15:44) See Comments Procedures/tests Complete & Pending: Procedures Performed prior 72 hours Category Date Time Status CT angio abdomen pelvis [CT] Stat Cat Scan 04/16/17 13:[address] angio chest [CT] Stat Cat Scan 04/16/17 13:46 Completed NM parris perf SPECT multi [NM] Routine Exams 04/15/17 22:13 Taken EV echocardiogram Routine Y 04/16/17 21:51 Completed SP exercise nuclear stress Routine Y 04/16/17 Completed Date of admission: 04/15/17 18:46 Primary care physician: Piero Hill MD Consults: 04/16/17 13:37 Consult to Cardiology [CONS] Routine Comment: Consulting Provider: Cardiology [place] Reason for Consult: exercise ecg + for ischemia on stress test. hx of prinzmetal- no longer taking imdur/nitro Time Notified: 13:37 Call Completed: Yes Discharging clinician: Lydia Schneider Anticipated date of discharge: 04/17/17 - Patient Status Disposition: Home, Self-Care Condition: Good Functional capacity at discharge: independent ambulation Overall status at discharge: patient is back to baseline - Discharge Instructions Follow Up With: Piero Hill MD [Primary Care Provider] - 04/21/17 1:15 pm Additional Instructions: Follow-up with primary care provider as scheduled - Diet and Activity Activity: increase activity as tolerated Diet: low fat, low cholesterol, low salt diet Hospital course: Ms. Bauer is a 41 year old female with past medical history of CAD status post STEMI, GERD, anxiety/depression. According to chart review, when patient had her STEMI, it was secondary to coronary vasospasm in 2009 that was treated with Imdur and nitroglycerin. She has not taken these medications in several years. She presented to the emergency department chief complaint of achiness between her shoulder blades radiating to her left shoulder associated with nausea and lightheadedness for the past week prior to presentation. On the day prior to presentation, patient experienced diaphoresis. She denied any palpitations or shortness of breath. Pain was aggravated by exertion and there were no relieving factors. Patient stating the pain was similar to the pain that she experienced with her prior ME. Workup in the emergency department unremarkable. No ECG changes. Chest x-ray negative. Patient was admitted to the hospitalist service for further evaluation and management. Troponins negative 3. Patient's echocardiogram was abnormal in that it appeared as if she had a possible aortic dissection. Echocardiogram revealing ejection fraction of 60-65% but with dilated aortic arch and the suspicion for aortic dissection flap. CTA was performed which ruled out a dissection. Her stress test was also abnormal and revealed ischemic changes but only with exercise ECG ; perfusion imaging was negative for ischemia or infarct. Cardiology was brought on board at that time. Cardiology saw the patient and surmised her pain was not likely to be cardiac in etiology and recommended further investigation of shoulder injury. Patient's pain was controlled with acetaminophen during this admission. She was able to tolerate a regular diet. She denied abdominal pain, nausea or shortness of breath. Patient had full range of motion of her left shoulder and there was no indication of an injury or any further imaging that was indicated from an inpatient perspective. She was discharged home in stable condition with close outpatient follow-up recommended. ITS Impressions Chest X-Ray 04/15/17 15:56 IMPRESSION: Negative chest. D/ / 04/15/2017 16:22:35 Iban Pantoja MD / kalin Interpreting Provider: Iban Pantoja MD Abdomen/Pelvis CTA 04/16/17 13:46 IMPRESSION: No aortic dissection. No acute abnormality in the aorta, chest, abdomen or pelvis. D/ / Chintan Herzog MD / Chintan Herzog MD Interpreting Provider: Chintan Herzog MD Chest CTA 04/16/17 13:46 IMPRESSION: No aortic dissection. No acute abnormality in the aorta, chest, abdomen or pelvis. D/ / Chintan Herzog MD / Chintan Herzog MD Interpreting Provider: Chintan Herzog MD Echocardiogram impressions: No pulmonary hypertension. LVEF 60-65%. Indeterminate diastolic function. The aortic arch is mildly dilated-4.2 cm. Suspicious for aortic dissection flap. No significant valvular dysfunction. Recommend CT chest to evaluate. Exercise nuclear stress impressions: Perfusion imaging was negative for ischemia or infarct. Exercise ECG was positive for ischemia-1 mm inferior changes. Exercise capacity was average. Normal hemodynamic response. Patient had no chest pain with stress. No arrhythmias noted with stress. Gated ejection fraction equals 65%. There is no evidence of TID. - Time Spent with Patient Total time spent providing and/or coordinating discharge services: - Constitutional Vitals: Temp Pulse Resp BP Pulse Ox 98.3 F 66 16 142/77 99 04/17/17 15:18 04/17/17 15:18 04/17/17 15:18 04/17/17 15:18 04/17/17 15:18 General appearance: Present: A&O X 3, pleasant, no acute distress, answers questions appropriately - Head Head exam: Present: atraumatic, normocephalic - Eye Eye exam: Present: PERRL, conjuntiva pink, sclera anicteric Pupils: Present: PERRL - Neck Neck exam general surgery: Present: supple, trachea midline. Absent: lymphadenopathy - Respiratory Respiratory exam: Present: CTAB. Absent: accessory muscle use, rales, respiratory distress, rhonchi, wheezes - Cardiovascular Cardiovascular exam: Present: RRR, +S1, +S2. Absent: diastolic murmur, gallop, rubs, systolic murmur - GI/Abdominal GI/Abdominal exam: Present: normal bowel sounds, soft, no peritoneal signs. Absent: distended, tenderness - Extremities Exam Extremities exam: Present: warm, radial pulses palpable and symetrical. Absent : calf tenderness, cyanotic, pedal edema - Back Exam Back exam: Present: tenderness - Neurological Exam Neurological exam: Present: alert, CN II-XII intact, normal gait, oriented X3, no focal deficits, strengths equal and symetr throughout. Absent: pronater drift, facial droop, speech deficit - Skin Skin exam: Present: dry, intact, normal color, warm
== END 2017-04-17 16:00 | disposition home or self-care (01) ==
LOC: 3BNU 15:39 → EMEROO 15:39 → 3BNU 19:40
PROVIDERS: ADMIT Nurse Practitioner Acute Care; ATTEND Nurse Practitioner Family

== ENCOUNTER 2018-11-27 02:17 | Inpatient (IN) ==
[2018-11-27] MEDS ORDERED: *HR* Ticagrelor 90 MG TABLET PO ONE (02:21)
[2018-11-27] MEDS ORDERED: *HR* Heparin 5,000 UNIT/ML VIAL IVP ONE ×2 (02:21→15:25)
[2018-11-27] MEDS ORDERED: *HR* FentaNYL (PF) 100 MCG/2 ML VIAL IVP ONE ×2 (02:26→02:42)
--- NOTE | 2018-11-27 02:28 | Emergency Department Note ---
Disposition Clinical Impression: ST elevation myocardial infarction (STEMI) Qualifiers: Involved coronary artery: LAD coronary artery Qualified Code(s): I21.02 - ST elevation (STEMI) myocardial infarction involving left anterior descending coronary artery Disposition: Admitted As Inpatient Condition: Critical Referrals: NONE,PCP [Primary Care Provider] - Forms: ED Satisfaction Letter Time of Disposition: 03:24 Chest Pain HPI - General Chief Complaint: ED Chest Pain Stated Complaint: chest pain Time Seen by Provider: 11/27/18 02:21 Source: patient, EMS Mode of arrival: EMS Limitations: no limitations Vital Signs Reviewed: Yes Nursing Notes Reviewed: Yes - History of Present Illness HPI Narrative: 43-year-old female with history of KS roughly 10 years ago arrives to the emerg ency department after her complaining of chest pain that is retrosternal radiating into her epigastrium into her neck and bilateral shoulders that started at roughly 120 this morning. The patient has associated shortness of breath and nausea. EMS was called. EMS called ahead to the emergency depa rtment after getting a twelve-lead in noted ST elevation in leads 1, aVL, V2. The patient was transported to the emergency department. Upon arrival to the emergency department a STEMI alert was called. Repeat EKG and STEMI criteria met. The patient case was discussed with on-call polymerization engineer for intervention, Dr. House. - Related Data Home Medications Medication Instructions Recorded Confirmed ALPRAZolam [Xanax 0.25 MG Tablet] 0.25 - 0.5 mg PO BID PRN 04/16/17 04/16/17 Acetaminophen [Tylenol] 500 mg PO Q6H PRN 04/16/17 04/16/17 Atorvastatin Calcium [Lipitor] 20 mg PO HS 04/16/17 04/16/17 Bupropion HCl [Wellbutrin Xl] 300 mg PO DAILY 04/16/17 04/16/17 Cholecalciferol (D-3) [Vitamin D] 1,000 unit PO DAILY 04/16/17 04/16/17 FLUoxetine HCl [Prozac] 60 mg PO DAILY 04/16/17 04/16/17 Ibuprofen [Advil] 200 mg PO Q8H PRN 04/16/17 04/16/17 Naproxen Sodium [Aleve] 220 mg PO Q12H PRN 04/16/17 04/16/17 Omeprazole [PriLOSEC] 20 mg PO DAILY 04/16/17 04/16/17 Allergies Allergy/AdvReac Type Severity Reaction Status Date / Time meperidine [From Demerol] Allergy See Verified 11/27/18 02:26 Comments All systems ED: reviewed and negative except as stated. Constitutional: Denies: fever, chills, weakness ENT ED: Denies: dysphagia Cardiovascular: Reports: chest pain. Denies: dyspnea on exertion, edema Respiratory: Reports: dyspnea. Denies: cough, sputum production Gastrointestinal: Reports: nausea. Denies: abdominal pain, vomiting Genitourinary: Denies: urgency, dysuria Musculoskeletal: Reports: myalgia. Denies: back pain Integumentary: Denies: rash Neurological: Denies: headache Chest Pain PMH - Past Medical History Medical history: Reports: coronary artery disease, myocardial infarction Surgical history: Reports: non-contributory Psychiatric history: Reports: anxiety, depression - Social History Smoking Status: Never smoker Alcohol use: Reports: none Drug use: Reports: none Physical Exam - General Limitations: no limitations General appearance: alert, in distress (secondary to pain) - Head Head exam: atraumatic, normocephalic, normal inspection - Eye Eye exam: Present: normal appearance, PERRL, EOMI - ENT ENT exam: normal exam, normal oropharynx, mucous membranes moist - Neck Neck exam: Present: normal inspection, full ROM, trachea midline - Chest Chest inspection: Present: normal inspection, symmetric chest wall rise - Respiratory Respiratory exam: Present: normal lung sounds bilaterally - Cardiovascular Cardiovascular exam: Present: regular rate, normal rhythm, normal heart sounds - Abdominal Exam Abdominal exam: Present: soft, Non-Tender. Absent: tenderness, distention, guarding, rebound, rigidity - Extremities Exam Extremities exam: Present: normal inspection - Neurological Exam Neurological exam: Present: alert, oriented X3 - Skin Skin exam: Present: warm, dry, intact, normal color Course Vital Signs Temperature 98.1 F 11/27/18 02:26 Pulse Rate 86 11/27/18 02:26 Respiratory Rate 18 11/27/18 02:26 Blood Pressure 158/80 11/27/18 02:26 O2 Sat by Pulse Oximetry 100 11/27/18 02:26 Temperature 98.1 F 11/27/18 02:26 Pulse Rate 98 11/27/18 03:00 Respiratory Rate 14 11/27/18 03:00 Blood Pressure 152/99 11/27/18 03:00 O2 Sat by Pulse Oximetry 98 11/27/18 03:00 Oxygen Delivery Oxygen Delivery Nasal Cannula Chest Pain - Lab Data Result diagrams: 11/27/18 02:25 Lab Results 11/27/18 11/27/18 11/27/18 Range/Units 02:25 02:25 02:25 WBC 12.3 H (4.3-11.1) K/mcL RBC 4.59 (3.82-4.97) M/mcL Hgb 13.9 (11.5-15.4) g/dL Hct 41.3 (35.3-44.9) % MCV 90.0 (83.0-100.0) fL MCH 30.3 (28.0-33.3) pg MCHC 33.7 (31.6-35.5) g/dL RDW 12.3 (11.5-14.5) % Plt Count 273 (140-400) K/mcL MPV 10.7 (9.4-12.4) fL Immature Gran % 0.3 (0-4) % Seg Neutrophils % 64.9 % Lymphocytes % 26.9 % Monocytes % 5.5 % Eosinophils % 1.9 % Basophils % 0.5 % Neutrophils # 8.0 (1.6-8.9) K/mcL Lymphocytes # 3.3 (0.6-4.6) K/mcL Monocytes # 0.7 (0.0-1.3) K/mcL Eosinophils # 0.2 (0.0-0.6) K/mcL Basophils # 0.1 (0.0-0.2) K/mcL PT 11.6 (9.4-12.1) Seconds INR 1.0 APTT 28.8 (26.0-36.0) Seconds Troponin I 0.27 H* (< 0.04) ng/mL - EKG Data EKG attestation: Yes I reviewed and interpreted this EKG. EKG results narrative: Heart rate [address] elevation noted in V1, V2, 3, V4, V5, V6. Reciprocal changes noted in 1, 2, aVF, aVL and aVR. STEMI alert
[2018-11-27] MEDS: Nitroglycerin 0.4 MG TAB.SUBL SL PRN ×2 (02:40→02:53)
--- NOTE | 2018-11-27 02:44 | Emergency Department Note ---
Disposition Clinical Impression: ST elevation myocardial infarction (STEMI) Qualifiers: Involved coronary artery: LAD coronary artery Qualified Code(s): I21.02 - ST elevation (STEMI) myocardial infarction involving left anterior descending coronary artery Disposition: Admitted As Inpatient Condition: Critical General Adult HPI - General Chief complaint: ED Chest Pain Stated complaint: chest pain Time Seen by Provider: 11/27/18 02:17 Source: patient, EMS Mode of arrival: EMS Limitations: no limitations Nursing Notes Reviewed: Yes Vital Signs Reviewed: Yes - History of Present Illness Pain Scale: 10 - Related Data Home Medications Medication Instructions Recorded Confirmed ALPRAZolam [Xanax 0.25 MG Tablet] 0.25 - 0.5 mg PO BID PRN 04/16/17 04/16/17 Acetaminophen [Tylenol] 500 mg PO Q6H PRN 04/16/17 04/16/17 Atorvastatin Calcium [Lipitor] 20 mg PO HS 04/16/17 04/16/17 Bupropion HCl [Wellbutrin Xl] 300 mg PO DAILY 04/16/17 04/16/17 Cholecalciferol (D-3) [Vitamin D] 1,000 unit PO DAILY 04/16/17 04/16/17 FLUoxetine HCl [Prozac] 60 mg PO DAILY 04/16/17 04/16/17 Ibuprofen [Advil] 200 mg PO Q8H PRN 04/16/17 04/16/17 Naproxen Sodium [Aleve] 220 mg PO Q12H PRN 04/16/17 04/16/17 Omeprazole [PriLOSEC] 20 mg PO DAILY 04/16/17 04/16/17 Allergies Allergy/AdvReac Type Severity Reaction Status Date / Time meperidine [From Demerol] Allergy See Verified 11/27/18 02:26 Comments Constitutional: Denies: fever, chills, weakness ENT ED: Denies: dysphagia Cardiovascular: Reports: chest pain. Denies: dyspnea on exertion, edema Respiratory: Reports: dyspnea. Denies: cough, sputum production Gastrointestinal: Reports: nausea. Denies: abdominal pain, vomiting Genitourinary: Denies: urgency, dysuria Musculoskeletal: Reports: myalgia. Denies: back pain Integumentary: Denies: rash Neurological: Denies: headache Past Medical History - Past Medical History Medical history: Reports: coronary artery disease, myocardial infarction Surgical history: Reports: non-contributory Psychiatric history: Reports: anxiety, depression - Social History Smoking Status: Never smoker Smokeless Tobacco Status: No Alcohol use: Reports: none Drug use: Reports: none Physical Exam - General Limitations: no limitations General appearance: alert, in distress (secondary to pain) Course Vital Signs Temperature 98.1 F 11/27/18 02:26 Pulse Rate 86 11/27/18 02:26 Respiratory Rate 18 11/27/18 02:26 Blood Pressure 158/80 11/27/18 02:26 O2 Sat by Pulse Oximetry 100 11/27/18 02:26 Temperature 98.1 F 11/27/18 02:26 Pulse Rate 98 11/27/18 03:00 Respiratory Rate 14 11/27/18 03:00 Blood Pressure 152/99 11/27/18 03:00 O2 Sat by Pulse Oximetry 98 11/27/18 03:00 Oxygen Delivery Oxygen Delivery Nasal Cannula Medical Decision Making - Lab Data Lab results reviewed: Yes I reviewed the patient's lab results. Result diagrams: 11/27/18 02:25 Lab Results 11/27/18 11/27/18 11/27/18 Range/Units 02:25 02:25 02:25 WBC 12.3 H (4.3-11.1) K/mcL RBC 4.59 (3.82-4.97) M/mcL Hgb 13.9 (11.5-15.4) g/dL Hct 41.3 (35.3-44.9) % MCV 90.0 (83.0-100.0) fL MCH 30.3 (28.0-33.3) pg MCHC 33.7 (31.6-35.5) g/dL RDW 12.3 (11.5-14.5) % Plt Count 273 (140-400) K/mcL MPV 10.7 (9.4-12.4) fL Immature Gran % 0.3 (0-4) % Seg Neutrophils % 64.9 % Lymphocytes % 26.9 % Monocytes % 5.5 % Eosinophils % 1.9 % Basophils % 0.5 % Neutrophils # 8.0 (1.6-8.9) K/mcL Lymphocytes # 3.3 (0.6-4.6) K/mcL Monocytes # 0.7 (0.0-1.3) K/mcL Eosinophils # 0.2 (0.0-0.6) K/mcL Basophils # 0.1 (0.0-0.2) K/mcL PT 11.6 (9.4-12.1) Seconds INR 1.0 APTT 28.8 (26.0-36.0) Seconds Troponin I 0.27 H* (< 0.04) ng/mL - EKG Data EKG #1 EKG attestation: Yes I reviewed and interpreted this EKG. EKG results narrative: EKG shows sinus rhythm with rate of 96. Anterolateral ST segment elevation consistent with STEMI. Critical Care Time Critical Care Time: Yes Total Critical Care Time: 35 Attestation: Critical care performed: Time is exclusive of separately billable procedures. Time includes: direct patient care, patient reassessment, coordination of patient care, interpretation of data (laboratory data, radiology data, and respiratory data), review of patient's medical records, medical consultation and documentation of patient care. Procedures included in critical care time: Procedures excluded from critical care time: Attestation Statement - Attestation Attestation: I, Dariel Louis MD, personally evaluated this patient and discussed their management with the resident physician. I reviewed the resident's note and agree with the documented findings, medical decision making, and plan of care. 43-year-old female presents to the emergency department with a complaint of severe substernal chest pain which started one hour prior to arrival. Onset was at rest. Pain radiates up into the neck and throat area. It also radiates down to the epigastric region. Pain radiates across the upper chest bilaterally to both shoulders and down both arms to the elbow. Also pain across the upper back. Patient rates the pain a 10 out of 10. She did have nausea and a couple episodes of vomiting associated with the pain. No shortness of breath but states it hurts to breathe. Some diaphoresis. Patient states that she has a history of an DC about 10 years ago. She had a cardiac catheter at that time which showed no damage and from what she describes it sounds like they thought she was having coronary spasm. I have any stents. She does not take any heart medications or blood pressure medicine. She does take medicine for cholesterol. Nonsmoker. On examination patient is a well-developed well-nourished female in no acute distress. She is alert and oriented 3. There is no cyanosis or diaphoresis. She does appear somewhat anxious and uncomfortable. Chest is nontender to palpation. Breath sounds are clear and equal bilaterally. Heart regular rate and rhythm. Abdomen soft and nontender with normal bowel sounds. No pedal edema. EKG consistent with acute anterolateral STEMI. A STEMI alert was called. Patient received aspirin per EMS as well as 1 nitroglycerin with no significant change in her pain. She also received nitroglycerin here in the emergency department. Fentanyl for pain. Brilinta and heparin given. Dr. Hernandez discussed with the financial sales representative, Dr. House, and he [id number] come in immediately to take the patient to cardiac catheter lab.
[2018-11-27] MEDS ORDERED: *HR* Heparin 10,000 UNIT/10 ML VIAL ONE (02:46)
[2018-11-27] MEDS ORDERED: Heparin 1,000 UNITS/500 mL 500 ML ONE (02:46)
[2018-11-27] MEDS ORDERED: ISOVUE-370 200 ML INFUS..BTL ONE ×2 (02:46→03:06)
[2018-11-27] MEDS ORDERED: Nitroglycerin 1,000 MCG/10 ML VIAL IV ONE (02:47)
[2018-11-27] MEDS ORDERED: 0.9 % Sodium Chloride 1,000 ML ONE (02:47)
[2018-11-27 02:49] LABS: Basophils # 0.1 K/mcL (0.0-0.2); Basophils % 0.5 %; Eosinophils # 0.2 K/mcL (0.0-0.6); Eosinophils % 1.9 %; Hematocrit 41.3 % (35.3-44.9); Hemoglobin 13.9 g/dL (11.5-15.4); Immature Granulocytes % 0.3 % (0-4); Lymphocytes # 3.3 K/mcL (0.6-4.6); Lymphocytes % 26.9 %; Mean Corpuscular HGB Conc 33.7 g/dL (31.6-35.5); Mean Corpuscular Hemoglobin 30.3 pg (28.0-33.3); Mean Platelet Volume 10.7 fL (9.4-12.4); Monocytes # 0.7 K/mcL (0.0-1.3); Monocytes % 5.5 %; Platelet Count 273 K/mcL (140-400); Red Blood Count 4.59 M/mcL (3.82-4.97); Red Cell Distribution Width 12.3 % (11.5-14.5); Segmented Neutrophils % 64.9 %
[2018-11-27 02:59] LABS: Prothrombin Time 11.6 Seconds (9.4-12.1)
[2018-11-27 03:01] LABS: Activated Partial Thrombo Time 28.8 Seconds (26.0-36.0)
[2018-11-27 03:06] LABS: Troponin I 0.27 ng/mL (< 0.04)
[2018-11-27] MEDS ORDERED: *HR* Midazolam HCl 2 MG/2 ML VIAL ONE (03:13)
[2018-11-27 03:41] LABS: BUN/Creatinine Ratio 23 (6-26); Blood Urea Nitrogen 18 mg/dL (6-20); Calcium 9.8 mg/dL (8.6-10.3); Carbon Dioxide 22 mEq/L (23-29); Chloride 104 mEq/L (98-107); Glucose 157 mg/dL (70-105); Magnesium 1.8 mg/dL (1.6-2.6); Osmolality,Calculated 291 (280-300); Potassium 3.2 mEq/L (3.5-5.1); Sodium 138 mEq/L (136-145); eGFR For Non-African Americans > 60 (> 60)
[2018-11-27] MEDS ORDERED: Nitroglycerin 25 MG/250 ML INFUS..BTL IVC ONE (03:46)
[2018-11-27] MEDS ORDERED: *HR* Morphine 2 MG/ML SYRINGE ONE (03:59)
[2018-11-27] MEDS ORDERED: *HR* Metoprolol 5 MG/5 ML VIAL IVP PRN ×2 (04:14→11:49)
[2018-11-27] MEDS ORDERED: *HR* Morphine 2 MG/ML SYRINGE IVP PRN (04:14)
--- NOTE | 2018-11-27 04:19 | Invasive Diagnostic Lab Proc ---
Name: Stephany Bauer Date of Study: 11/27/2018 Date: 1975 Ht: 66.1in Medical Record#: [id number] Age: 43 Wt: 176.37lb Gender: Female BSA: 1.9 Order #: [id number] BMI: 28.34 Physicians Procedure Physician: Hermilo House DO Referring MD: Referring MD: Staff Name Position Time In MariahCali ledezma RN Monitor 03:09 AM Tamiko Blackwell RN Motel Front Desk Attendant 03:09 AM Emily Baptiste RT (R) Scrub 03:09 AM Indications Indication STEMI Procedures Performed Procedure L HRT ARTERY/VENTRICLE ANGIO IV Doppler BLD Flow 1st Vessel IV Doppler BLD Flow Ad'l Vessel Pre-Procedure Checklist Informed consent is complete signed and on chart. H&P is on chart. ID band is on and ID verified with patient. Patient NPO for procedure The procedure was described for the patient and questions were answered. Blood Pressure: 146/89 ECG is on chart. Rhythm: NSR Plan of Care Patient will tolerate the procedure without complications. Adequate level of comfort will be maintained. Hemodynamics will remain stable Patient will recover from procedure without complications. Respiratory function will be maintained. Cardiac rhythm will remain stable. Patient temperature will be maintained. Patient and/or family have verbalized understanding of the procedure. Patient Education Chief Complaint/Reason for Test: Cardiac Cath Developmental Category: Adult (18-64 years) Developmentally Appropriate for Age: Yes Learning Barriers: None Education Needs: Procedure Education Method: Verbal Information Taught: Cardiac Cath Educational Evaluation: Able to repeat information Intravenous Access Time IV Size Location DC'd Fluid/Drip Rate Units RN 18g 1 1" Patent On Arrival Rt Antecubital Tamiko Blackwell RN 20g 1 1/4" Patent On Arrival Lt Antecubital Tamiko Blackwell RN Allergies meperidine Vital Signs Time BP (mmHg) HR (bpm) O2 Sat. RR (bpm) LOC 03:10 AM / % 5 = Fully awake and oriented or at pre-proc level 03:10 AM / % 4 = Oriented but drowsy 03:25 AM / % 4 = Oriented but drowsy 03:40 AM / % 4 = Oriented but drowsy 03:14 AM 146 / 89 94 95 % 42 03:19 AM 145 / 90 91 98 % 14 03:23 AM 138 / 87 115 96 % 17 03:28 AM 143 / 89 93 99 % 12 03:33 AM 145 / 89 93 98 % 14 03:38 AM 147 / 82 96 100 % 12 03:43 AM 144 / 83 100 96 % 16 03:48 AM 147 / 77 101 98 % 13 03:53 AM 150 / 83 99 98 % 11 Procedural Medications Time Medication Dose Units Method Given By 03:14 AM Oxygen 2 L/min nasal cannula Tamiko Blackwell RN 03:14 AM Versed 2 mg Intravenous Tamiko Blackwell RN 03:19 AM Lidocaine 2% 10 ml Subcutaneous Hermilo House, DO 03:39 AM 90mg Adenosine in 90 ml 0.9 NS 673 ml/hr Intravenous Tamiko Blackwell RN 03:52 AM Nitroglycerin 10 mcg/min Intravenous Tamiko Blackwell RN 04:01 AM Morphine 2 mg Intravenous Tamiko Blackwell RN ASA Classification: Emergent Procedure: ASA score is assumed Michael Score Preprocedure Postprocedure Activity 2- Moves 4 extremities sustained head lift Activity 2- Moves 4 extremities sustained head lift Circulation 2- SBP +/= 20 points of pre-anesthetic level Circulation 2- SBP +/= 20 points of pre-anesthetic level Consciousness 2- Awake and alert oriented x 3 Consciousness 2- Awake and alert oriented x 3 O2 Saturation 2- Able to maintain O2 satruation of 92% on room air O2 Saturation 2- Able to maintain O2 satruation of 92% on room air Respiratory 2- Able to deep breathe and cough well Respiratory 2- Able to deep breathe and cough well Total Score 10 Total Score 10 Contrast Agent: Isovue Diagnostic Contrast: 100 ml Total Contrast: 100 ml Fluoro Dose: 49 mGy Activated Clotting Time Time Seconds to Clot 03:37 AM 400 03:56 AM 177 Procedure Log Time Note Enter By 03:09 AM Pt arrived to slab off mill tender 1 at 03:09 samantha 03:09 AM CathStat 03:09 AM Cali Lemus RN Position: Monitor Time in: 03:09 samantha 03:09 AM Tamiko Blackwell RN Position: Motel Front Desk Attendant Time in: 03:09 samantha 03:09 AM Emily Baptiste RT (R) Position: Scrub Time in: 03:09 samantha 03:09 AM Patient charges- Angio tray pack, Navilyst 3mm J, Pulse Oximetry and ACIST tubing and transducer [facility] : AM Sign in performed according to hospital policy. Informed consent was obtained. [facility] 03:09 AM Procedure start 03: [facility] 03:10 AM Hair removed from procedure site in emergency department using clippers. Bilateral groin prepped with Chloraprep by Cali Lemus RN, then patient was draped. Skin intact. [facility] 03:10 AM Time: 03:10 Patient comfortable and pain free: Yes [facility] 03:10 AM Physician arrived 03:10 [facility] 03:10 AM Time: 03:10LOC: 5 = Fully awake and oriented or at pre-proc level [facility] 03:12 AM Vitals capture started with the following parameters, Patient=Adult, Interval=5 min, Initial Yuyhdogn=791 mmHg, Deflation Rate=3 mmHg, Cuff placed on Right Arm 03:14 AM HR=94 bpm, UMRU=588/89 mmhg, SpO2=95.0 %, Resp=42 B/min, Comment=nsr 03:14 AM Time: 03:14 Oxygen on at 2 L/min per nasal cannula by Tamiko Blackwell RN [facility] 03:15 AM Time: 03:14 Versed 2 mg Intravenous Given by Tamiko Blackwell RN [facility] 03:15 AM Clinical Presentation: STEMI or equivalent [facility] 03:15 AM Critical cardiac patient with acute CA was brought emergently to the cardiac cytology laboratory manager for immediate coronary angiography and intervention if clinically indicated. [facility]:19 AM HR=91 bpm, VHMP=865/90 mmhg, SpO2=98.0 %, Resp=14 B/min, Comment=nsr 03:19 AM Time out was performed according to hospital policy. Conscious sedation and anesthesia was achieved (see medication log with in this report above) [facility] 03:21 AM Time: 03:19 10 ml Lidocaine 2% to right groin Subcutaneous Given by Hermilo House DO [facility] 03:23 AM ZF=368 bpm, XSPK=596/87 mmhg, SpO2=96.0 %, Resp=17 B/min, Comment=nsr 03:23 AM Micro-Introducer Kit utilized for sheath placement [facility] 03:23 AM Access obtained by percutaneous puncture. 6Fr 10cm Terumo Enola sheath placed in right Femoral artery. [id number] jcallihan 03:23 AM 6Fr FR 4 catheter inserted over the wire [facility] jcallihan 03:24 AM Catheter crossed the aortic valve and was selectively placed in the left ventricle. Pressures recorded on pullback for left heart catheterization. jcallihan 03:24 AM Hand injected LV Gram jcallihan 03:24 AM Recorded Pressure: LV, HR=94, Condition=Condition 1 (Left Ventricle) LV 142/10/18 03:25 AM Recorded Pressure: LV, Ao, HR=93, Condition=Condition 1 (Left Ventricle) LV 139/10/17, (Aorta) Ao 140/93/115 03:25 AM Recorded Pressure: Ao, HR=95, Condition=Condition 1 (Aorta) Ao 132/89/108 03:25 AM Time: 03:10LOC: 4 = Oriented but drowsy jcallihan 03:25 AM Time: 03:10 Patient comfortable and pain free: Yes jcallihan 03:25 AM repositioned to RCA jcallihan 03:25 AM RCA angiography performed in multiple views. jcallihan 03:25 AM Catheter removed jcallihan 03:26 AM 6Fr JL4 Runway guide catheter was used to cannulate the PCI vessel successfully. reused? No jcallihan 03:27 AM Inflation device was opened. jcallihan 03:27 AM Coronary Dominance: right jcallihan 03:27 AM Guide catheter removed intact. jcallihan 03:27 AM 6Fr XB LAD 3.5 Cordis guide catheter was used to cannulate the PCI vessel successfully. reused? No jcallihan 03:28 AM HR=93 bpm, RDCS=061/89 mmhg, SpO2=99.0 %, Resp=12 B/min, Comment=nsr 03:29 AM .014 ChoICE PT Extra Support 300cm guide wire across target lesion- successful. reused? No jcallihan 03:29 AM LCA angiography performed in multiple views. jcallihan 03:30 AM Recorded Pressure: Ao, HR=93, Condition=Condition 1 (Aorta) Ao 143/93/115 03:33 AM HR=93 bpm, EXUA=987/89 mmhg, SpO2=98.0 %, Resp=14 B/min 03:34 AM Asist FFR Catheter advanced to target lesion. jcallihan 03:37 AM Pressure channel 2 zeroed. 03:37 AM At 03:37 the ACT was >400 seconds. jcallihan 03:38 AM HR=96 bpm, MJEN=919/82 mmhg, EbX0=975.0 %, Resp=12 B/min 03:39 AM Time: 03:39 90mg Adenosine in 90 ml 0.9 NS 673 ml/hr Intravenous Given by Tamiko Blackwell RN Henderson pump jcallihan 03:40 AM Time: 03:25 Patient comfortable and pain free: Yes jcallihan 03:40 AM Time: 03:25LOC: 4 = Oriented but drowsy jcallihan 03:41 AM Recorded Pressure: Ao, RV, HR=98, Condition=Condition 1 (Aorta) Ao 144/98/120, (Right Ventricle) RV 96/47/48 03:41 AM Adenosine off. jcallihan 03:41 AM FFR Measurement: 0.82 (LAD) jcallihan 03:41 AM Lesion found in Proximal LAD. Pre Stenosis: 50 Pre CITLALI Flow: jcallihan 03:42 AM Proximal Left Anterior Descending Coronary Artery with 50% stenosis. If graft is supplying this territory, 0 % stenosis. jcallihan 03:43 AM OI=871 bpm, WIEO=809/83 mmhg, SpO2=96.0 %, Resp=16 B/min, Comment=nsr 03:44 AM Lesion found in Proximal Circumflex. Pre Stenosis: 40 Pre CITLALI Flow: jcallihan 03:44 AM Circumflex, Obtuse Marginal, Left Posterior Descending, and Left Posterolateral Coronary Arteries with 50 % stenosis. If graft is supplying this area, 0 % stenosis jcallihan 03:44 AM IV Adenosine restarted for Circ measurement. jcallihan 03:45 AM Recorded Pressure: Ao, RV, ZE=999, Condition=Condition 1 (Aorta) Ao 134/89/110, (Right Ventricle) RV 92/46/49 03:45 AM FFR Measurement: 0.92 (Circ) jcallihan 03:46 AM Adenosine off. jcallihan 03:46 AM Flow Wire/Catheter removed intact jcallihan 03:46 AM Guide wire removed intact. jcallihan 03:46 AM Guide catheter removed intact. jcallihan 03:46 AM Recorded Pressure: Ao, YU=226, Condition=Condition 1 (Aorta) Ao 136/90/110 03:46 AM Right groin shot obtained. jcallihan 03:48 AM JN=468 bpm, ICMJ=693/77 mmhg, SpO2=98.0 %, Resp=13 B/min, Comment=nsr 03:49 AM Lesion found in 1st Marginal. Pre Stenosis: 50 Pre CITLALI Flow: jcallihan 03:50 AM Procedure completed at 03:50 11/27/2018 jcallihan 03:50 AM Did you address CITLALI flow and Dominance? Yes jcallihan 03:50 AM Sign out completed: Radiation Dose 453.17 mGy, 48.97 Gy/cm2 Fluoro Time: 5.3 Isovue 370 - 200ml contrast 100 ml given by Hermilo House DO. Complications: None. The patient was discharged out of the cytology laboratory manager in stable condition. Cardiac Rehab Consult needed: NoConfirmed administered medications: Yes jcallihan 03:50 AM Isovue 370 - 200ml,2 Bottle(s) used. jcallihan 03:51 AM Sheath left in place to be pulled on floor/holding areaV+Pad jcallihan 03:51 AM Estimated Blood Loss: less than 20cc jcallihan 03:51 AM Post ECG NSR jcallihan 03:51 AM Post Blood Pressure 147/77 jcallihan 03:51 AM 03:51 Post Pulses Bilateral DP & PT 2+ jcallihan 03:52 AM Information taught Cardiac Cath and IVUS/Flowire jcallihan 03:52 AM Time: 03:52 Nitroglycerin 10 mcg/min Intravenous Given by Tamiko Blackwell RN jcallihan 03:53 AM Education needs Procedure, Plan of Care, and Responsibilities of Patient in Care jcallihan 03:53 AM Learning barriers :None jcallihan 03:53 AM Education Methods Verbal jcallihan 03:53 AM Education evaluation Able to repeat information jcallihan 03:53 AM Site status No bleeding/hematoma - Rt Groin as reported by Sites, Emily RT (R) at 03:53 jcallihan 03:53 AM Opsite applied jcallihan 03:53 AM Plavix, Effient or Brilinta given Yes jcallihan 03:53 AM Family placed in consult room. jcallihan 03:53 AM Complications: None jcallihan 03:53 AM HR=99 bpm, PAHU=235/83 mmhg, SpO2=98.0 %, Resp=11 B/min 03:55 AM Time: 03:40LOC: 4 = Oriented but drowsy jcfay 03:55 AM Time: 03:40 Patient comfortable and pain free: Yes samantha 03:56 AM At 03:56 the ACT was 177 seconds. samantha 04:00 AM Patient out of room: 04:00 samantha 04:01 AM Report given to Aubree HARTLEY Pt taken to ICU Room #10. 04:00 samantha 04:01 AM Time: 04:01 Morphine 2 mg Intravenous Given by Tamiko Blackwell RN Complications Complication None None Hemodynamics Pressures Site Systolic/A Wave Diastolic/V Wave Mean LV 142 10 18 LV 139 10 17 AO 140 93 115 AO 132 89 108 AO 143 93 115 AO 144 98 120 RV 96 47 48 AO 134 89 110 RV 92 46 49 AO 136 90 110 Post Procedure Information Blood Pressure: 147/77 mmHg Rhythm: NSR Post procedural instructions were given Closure Device Time Device Success/Fail Manual Compression Site Checks Time Location Status Staff Sheath In? Note 03:53 AM Rt Groin No bleeding/hematoma Sites, Emily RT (R) Pulses Time Site Pre-Procedure Post-Procedure Note Bilateral DP 2+ Bilateral radial 2+ 3:51:00 AM Bilateral DP & PT 2+ Updated by Cali Lemus RN on 11/27/2018 4:09:55 AM electronically signed on 11/27/2018 4:10:23 AM with status of Final
[2018-11-27] MEDS ORDERED: 0.9 % Sodium Chloride 1,000 ML IVC SCH ×2 (04:30→11:49)
--- NOTE | 2018-11-27 04:34 | Cardiology History & Physical ---
Date of Encounter: 11/27/18 Time of Encounter: 03:05 Assessment and Plan (1) ST elevation (STEMI) myocardial infarction involving left anterior descending coronary artery Current Visit: Yes Status: Acute The assessment and plan as outlined above was discussed with the patient and/or family members who expressed understanding and agreement. All questions were answered. STEMI ant leads, recommend emergent LHC/Possible, risks and benefit discussed, elects to proceed with emergent LHC/poss. (2) Hyperlipidemia Current Visit: No Status: Chronic The assessment and plan as outlined above was discussed with the patient and/or family members who expressed understanding and agreement. All questions were answered. Fasting lipid profile ordered, begin statin. (3) Anxiety and depression Current Visit: No Status: Chronic The assessment and plan as outlined above was discussed with the patient and/or family members who expressed understanding and agreement. All questions were answered. continue home medication (4) Shoulder pain Current Visit: No Status: Acute The assessment and plan as outlined above was discussed with the patient and/or family members who expressed understanding and agreement. All questions were answered. Mild musculoskeletal shoulder pain, discontinue NSAIDS, begin tylenol for pain Qualifiers: Chronicity: acute Laterality: left Qualified Code(s): M25.512 - Pain in left shoulder (5) Hypokalemia Current Visit: Yes Status: Acute The assessment and plan as outlined above was discussed with the patient and/or family members who expressed understanding and agreement. All questions were answered. K replacement ordered History of Present Illness Chief complaint: chest pain HPI: Ms. Bauer is a 43 year old female presenting with chest pain. H&P performed prior to cath, documented post cath to facilitate emergent intervention.. Pt complains of mid sternal chest pain, radiating into her neck, and both shoulders, while at rest, 8//10 at most severe, improved to 5/10 with sl ntg, at time of evaluation. She admits to mild nausea and shortness of breath. Pt reports similar chest pain ten years ago, was evaluated at [facility], had LHC, no intervention performed. She also reports had chest pain approximately two years ago, reportedly had a normal stress test at that time. Past Med Surg Social Fam HX - Past Medical History Medical history: coronary artery disease, myocardial infarction Psychiatric history: anxiety, depression - Past Surgical History Surgical History: non-contributory - Social History Smoking Status: Never smoker Smokeless Tobacco Status: No Alcohol use: none Drug use: none - Family History Mother Hx Family Cardiac Disorders: Yes (Mitral Prolapse, HLD, HTN) Medications and Allergies ALPRAZolam [Xanax 0.25 MG Tablet] 0.25 - 0.5 mg PO BID PRN 04/16/17 [History] Acetaminophen [Tylenol] 500 mg PO Q6H PRN 04/16/17 [History] Atorvastatin Calcium [Lipitor] 20 mg PO HS 04/16/17 [History] Bupropion HCl [Wellbutrin Xl] 300 mg PO DAILY 04/16/17 [History] Cholecalciferol (D-3) [Vitamin D] 1,000 unit PO DAILY 04/16/17 [History] FLUoxetine HCl [Prozac] 60 mg PO DAILY 04/16/17 [History] Ibuprofen [Advil] 200 mg PO Q8H PRN 04/16/17 [History] Naproxen Sodium [Aleve] 220 mg PO Q12H PRN 04/16/17 [History] Omeprazole [PriLOSEC] 20 mg PO DAILY 04/16/17 [History] Allergy/AdvReac Type Severity Reaction Status Date / Time meperidine [From Demerol] Allergy See Verified 11/27/18 02:26 Comments All Systems Review: The remainder of the systems were reviewed and are negative - Constitutional Constitutional: fatigue, malaise - Gastrointestinal Gastrointestinal: other (indigestion) Physical Examination Vital Signs, Last 4 Hours Temp Pulse Pulse Resp BP Pulse Ox 11/27/18 04:21 98.0 F 11/27/18 04:19 99 11/27/18 03:00 98 14 152/99 98 11/27/18 02:55 94 15 153/97 98 11/27/18 02:53 98 11/27/18 02:51 97 14 153/97 98 11/27/18 02:45 96 15 149/98 97 11/27/18 02:38 98 16 143/10 100 11/27/18 02:26 98.1 F 86 18 158/80 100 General: Conversant, Other (uncomfortable, anxious) HEENT: Atraumatic, Normocephaly, Mucus Membranes Moist Neck: No JVD, Normal carotid pulses Cardiac: Reg Rate and Rhythm, Normal S1 and S2, No Murmur Lungs: Normal Breath Sounds, No Wheeze, Rales, Rhonchi Neuro: Alert and responsive, No focal deficits noted Abdomen: Soft, Non-Tender Skin: No rashes noted on visualized skin Musculoskeletal: No Chest Wall Tenderness Extremities: No Clubbing, No Cyanosis, No Edema, Normal Pulses Results 11/27/18 02:25 11/27/18 02:25 Lab Results 11/27/18 11/27/18 11/27/18 02:25 02:25 02:25 WBC 12.3 H Hgb 13.9 Hct 41.3 Plt Count 273 INR 1.0 APTT 28.8 Sodium 138 Potassium 3.2 L Chloride 104 Carbon Dioxide 22 L BUN 18 Creatinine 0.80 Glucose 157 H Calcium 9.8 Magnesium 1.8 Troponin I 0.27 H* - EKG Interpretation EKG results cardiology: personally reviewed (NSR, ST segment elevation anterior leads)
--- NOTE | 2018-11-27 04:51 | Event Note ---
Date of Encounter: 11/27/18 Time of Encounter: 04:51 - Cardiology Event Note LHC: FFR LAD, CX LV: mild LV systolic impairment, ant and apical hypokinesis, EF 40% LMT: proximal 30% LAD: Proximal 50%, hazy tubular stenosis, FFR .82 Cx: Proximal 40% hazy, tubular stenosis, FFR .92 OM1, Proximal 50% RCA: dominant,normal Pt has moderately obstructive proximal stenosis in LAD, Cx, and OM1, moderate proximal plaque across trifrication, maximize medical tx, Will eval LV function on echo, obtain old cath films from [facility] ten years ago if available. If continues to have chest pain, consider lexiscan cardiolyte stress test in 48 hours, if positive repeat cath with plan IVUS LMT, LAD, Cx and OM1, with possible PCI if indicated. Pt is not likely CABG candidate due to small LAD, distal OM1, very small for possible surgical revascularization.
[2018-11-27] MEDS ORDERED: *HR* Atropine Sulfate 1 MG/10 ML SYRINGE ONE (05:20)
[2018-11-27] MEDS ORDERED: Ondansetron 4 MG/2 ML VIAL ONE (05:52)
[2018-11-27] MEDS ORDERED: Ondansetron 4 MG/2 ML VIAL IVP ONE (05:54)
[2018-11-27] MEDS ORDERED: Potassium Effervescent 25 MEQ TABLET.EFF PO ONE (07:08)
--- NOTE | 2018-11-27 07:39 | Pulmonology Consult Note ---
<Michael Masters - Last Filed: 11/27/18 12:01> Date of Encounter: 11/27/18 Time of Encounter: 08:00 Assessment and Plan (1) ST elevation myocardial infarction (STEMI) Current Visit: Yes Status: Acute Patient presented with substernal chest pain relieved with nitroglycerin. CXR revealed no evidence for acute cardiopulmonary process. EKG revealed STEMI. Patient had similar episode 10 years ago. Patient was taken to the [facility] last night with no intervention performed. Patient reports ongoing pain in her bilateral shoulders. Continue Tylenol and morphine as needed for pain. Patient started on DAPT. Cardiology following. Patient is stable from a pulmonary standpoint. Case discussed with boy's adviser, liliya to transfer to floor. Anticipate transfer out of ICU once to telemetry bed is available. Qualifiers: Involved coronary artery: LAD coronary artery Qualified Code(s): I21.02 - ST elevation (STEMI) myocardial infarction involving left anterior descending coronary artery (2) Hypokalemia Current Visit: Yes Status: Acute Potassium supplement. Magnesium level within normal limits. Continue monitor ing. (3) Hyperlipidemia Current Visit: Yes Status: Chronic Lipid panel ordered. Continue high intensity statin. Qualifiers: Hyperlipidemia type: unspecified Qualified Code(s): E78.5 - Hyperlipidemia, unspecified (4) GERD (gastroesophageal reflux disease) Current Visit: No Status: Chronic Continue PPI. Qualifiers: Esophagitis presence: esophagitis presence not specified Qualified Code(s): K21.9 - Gastro-esophageal reflux disease without esophagitis (5) Anxiety and depression Current Visit: Yes Status: Chronic Resume home anxiolytics. (6) DVT prophylaxis Current Visit: No Status: Acute EPCDs History of Present Illness Consult date: 11/27/18 Requesting physician: Hermilo House Reason for consult: other (ICU management) Chief complaint: Chest pain History of present illness: Ms. Bauer is a 43 year old female with a past medical history of CAD, hyperlipi demia and anxiety disorder who presented complaining of mid sternal chest pain radiating to her neck and bilateral shoulders while at rest. Patient's pain severity was 8 out of 10 and decreased to 5 out of 10 severity after nitroglycerin administration. She reported associated nausea and shortness of breath. EKG revealed STEMI. Patient had similar episode 10 years ago. Patient was taken to the [facility] last night with no intervention performed. Patient reports ongoing pain in her bilateral shoulders and increased anxiety. Critical care was consulted for ICU management. Past Med Surg Social Fam HX - Past Medical History Medical history: coronary artery disease, myocardial infarction Psychiatric history: anxiety, depression - Past Surgical History Surgical History: non-contributory - Social History Smoking Status: Never smoker Smokeless Tobacco Status: No Alcohol use: none Drug use: none - Family History Mother Hx Family Cardiac Disorders: Yes (Mitral Prolapse, HLD, HTN) Grandfather Living Status: Age at : 50 Cause of : DE Hx Family Cardiac Disorders: Yes (CAD) Medications and Allergies ALPRAZolam [Xanax 0.25 MG Tablet] 0.25 - 0.5 mg PO BID PRN 04/16/17 [History] Acetaminophen [Tylenol] 500 mg PO Q6H PRN 04/16/17 [History] Atorvastatin Calcium [Lipitor] 20 mg PO HS 04/16/17 [History] Bupropion HCl [Wellbutrin Xl] 300 mg PO DAILY 04/16/17 [History] Cholecalciferol (D-3) [Vitamin D] 1,000 unit PO DAILY 04/16/17 [History] FLUoxetine HCl [Prozac] 60 mg PO DAILY 04/16/17 [History] Ibuprofen [Advil] 200 mg PO Q8H PRN 04/16/17 [History] Naproxen Sodium [Aleve] 220 mg PO Q12H PRN 04/16/17 [History] Omeprazole [PriLOSEC] 20 mg PO DAILY 04/16/17 [History] Allergy/AdvReac Type Severity Reaction Status Date / Time meperidine [From Demerol] Allergy See Verified 11/27/18 02:26 Comments All Systems: The remainder of the systems were reviewed and are negative - Constitutional Constitutional: no chills, no fever(s), no headache(s), no weakness - EENT Nose, mouth and throat: no headache(s), no sore throat - Cardiovascular Cardiovascular: chest pain, chest pain at rest, no edema - Respiratory Respiratory: dyspnea, no cough - Gastrointestinal Gastrointestinal: nausea, no abdominal pain, no vomiting - Genitourinary Genitourinary: no dysuria, no flank pain - Musculoskeletal Musculoskeletal: back pain, myalgias - Integumentary Integumentary: no erythema, no rash - Neurological Neurological: no numbness, no tingling - Psychiatric Psychiatric: anxiety, no depression - Endocrine Endocrine: no fatigue Physical Examination Vital Signs: Vital Signs, Last 4 Hours Temp Pulse Pulse Resp BP Pulse Ox 11/27/18 06:10 96 12 143/91 97 11/27/18 06:05 95 14 138/83 97 11/27/18 06:00 93 15 132/87 97 11/27/18 05:58 98 13 132/85 97 11/27/18 05:38 99 13 137/85 99 11/27/18 05:00 101 14 124/95 96 11/27/18 04:40 92 92 12 136/93 97 11/27/18 04:21 98.0 F 11/27/18 04:19 99 General appearance: no acute distress Eyes: nonicteric ENT: oropharynx moist Neck: supple, no JVD Effort: normal Inspection: normal Auscultation: bilateral: clear Percussion: bilateral: not dull Cardiovascular: regular rate and rhythm Gastrointestinal: normoactive bowel sounds, soft, non-distended Integumentary: normal (Warm and dry, no bleeding or ecchymosis from groin site) Extremities: no cyanosis, no edema, no clubbing Musculoskeletal: no deformities, ROM normal normal mental status, non-focal exam mood appropriate, affect normal Results - Laboratory Findings CBC and BMP: 11/27/18 02:25 11/27/18 02:25 PT/INR, D-dimer PT 11.6 Seconds (9.4-12.1) 11/27/18 02:25 Abnormal lab findings: Abnormal lab results WBC 12.3 K/mcL (4.3-11.1) H 11/27/18 02:25 Potassium 3.2 mEq/L (3.5-5.1) L 11/27/18 02:25 Carbon Dioxide 22 mEq/L (23-29) L 11/27/18 02:25 Glucose 157 mg/dL (70-105) H 11/27/18 02:25 POC Glucose 100 mg/dL (70-99) H 11/27/18 04:19 Troponin I 0.27 ng/mL (< 0.04) H* 11/27/18 02:25 - Diagnostic Findings Chest x-ray: report reviewed, image reviewed Additional studies: ITS Impressions Chest X-Ray 11/27/18 02:22 IMPRESSION: No evidence for acute cardiopulmonary process. D/ / Mitch Rueda MD / Mitch Rueda MD Interpreting Provider: Mitch Rueda MD - Clinical Findings Intake & Output: Intake & Output 11/26/18 11/26/18 11/27/18 15:59 23:59 07:59 Intake Total 0 / 0 Balance 0 / 0 Weight 79.38 kg Consult Discharge Plan - Plan Referrals: NONE,PCP [Primary Care Provider] - <Per Garcia - Last Filed: 11/27/18 16:36> Date of Encounter: 11/27/18 All Systems: The remainder of the systems were reviewed and are negative Physical Examination Vital Signs: Vital Signs, Last 4 Hours Temp Pulse 11/27/18 16:07 112 11/27/18 15:25 98.3 F Results - Laboratory Findings CBC and BMP: 11/27/18 02:25 11/27/18 02:25 PT/INR, D-dimer PT 11.5 Seconds (9.4-12.1) 11/27/18 15:51 Abnormal lab findings: Abnormal lab results WBC 12.3 K/mcL (4.3-11.1) H 11/27/18 02:25 Heparin Anti-Xa, Unfract 0.03 IU/mL (0.30-0.70) L 11/27/18 15:51 Potassium 3.2 mEq/L (3.5-5.1) L 11/27/18 02:25 Carbon Dioxide 22 mEq/L (23-29) L 11/27/18 02:25 Glucose 157 mg/dL (70-105) H 11/27/18 02:25 POC Glucose 100 mg/dL (70-99) H 11/27/18 04:19 Troponin I 0.27 ng/mL (< 0.04) H* 11/27/18 02:25 Triglycerides 157 mg/dL (< 150) H 11/27/18 02:25 VLDL Cholesterol, Calc 31 mg/dL (< 31) H 11/27/18 02:25 - Clinical Findings Intake & Output: Intake & Output 11/27/18 11/27/18 11/27/18 07:59 15:59 23:59 Intake Total 0 / 0 Balance 0 / 0 Weight 79.38 kg - Attending Attestation I saw and evaluated this patient and my medical decision-making was reviewed with the Resident Physician. I agree with the documented findings, disposition and treatment plan as described except to the extent set forth below. We independently had [id number] contact with the patient Patient seen and examined at bedside Labs, radiology, chart personally reviewed. Management was reviewed during multidisciplinary critical care rounds. SUBMARINE WORKER: Patient is conscious oriented 3 Pulm: Patient has acceptable oxygenation and ventilation. Cards: Patient had a STEMI no angiographically significant disease no stent was placed patient had low-normal systolic function with some diastolic dysfunction patient does not look like fluid overload on exam FEN-GI: Advance diet as tolerated Renal: Labs and output reviewed ID: No active infectious disease issues. Heme/Onc: Labs reviewed Endo: Glucose Monitored Integ/MSK: Skin Care per routine ICU Nursing Protocol to prevent ulcers. Lines: All lines examined without evidence of infection : Dispo: Patient can be transferred to stepdown if it is okay with cardiology. CODE: Full Code
[2018-11-27] MEDS ORDERED: *HR* HYDROcodone/Acet 5/325 mg TABLET PO ONE (07:50)
[2018-11-27] MEDS ORDERED: Adenosine 90 MG/30 ML MLS IV ONE (08:19)
[2018-11-27] MEDS ORDERED: Perflutren Lipid Microsphere 1.3 ML in 0.9 % Sodium Chloride 8.7 ML IVP ONE (08:24)
[2018-11-27] MEDS ORDERED: Aspirin 81 MG TAB.CHEW PO SCH (09:00)
[2018-11-27] MEDS ORDERED: BuPROPion XL (24 HR) 150 MG TABLET PO SCH (09:00)
[2018-11-27] MEDS ORDERED: *HR* Ticagrelor 90 MG TABLET PO SCH (09:00)
[2018-11-27] MEDS ORDERED: Ondansetron 4 MG/2 ML VIAL IVP PRN (10:24)
[2018-11-27] MEDS ORDERED: ALPRAZolam 0.25 MG TABLET PO PRN ×2 (11:14→11:49)
[2018-11-27] MEDS ORDERED: FLUoxetine HCl Oral Soln 20 MG/5 ML UDC PO SCH (11:15)
[2018-11-27] MEDS ORDERED: Nitroglycerin 0.4 MG TAB.SUBL SL PRN (11:49)
[2018-11-27 12:26] LABS: Chol/HDL Ratio 3.6 (0-4.9); Cholesterol 175 mg/dL (< 200); HDL Cholesterol 49 mg/dL (40-59); LDL Cholesterol,Calculated 95 mg/dL (0-99); Triglycerides 157 mg/dL (< 150)
[2018-11-27] MEDS: Ondansetron 4 MG/2 ML VIAL IVP PRN ×2 (12:52→21:37)
[2018-11-27] MEDS ORDERED: Pantoprazole 40 MG VIAL IVP ONE (13:06)
[2018-11-27] MEDS ORDERED: Ketorolac 15 MG/ML VIAL IVP ONE (14:49)
[2018-11-27] MEDS ORDERED: *HR* LORazepam 2 MG/ML VIAL IVP ONE (15:13)
[2018-11-27] MEDS ORDERED: *HR* Heparin 5,000 UNIT/ML VIAL IVP PRN ×2 (15:25)
[2018-11-27 16:29] LABS: Heparin anti-factor XA UFH 0.03 IU/mL (0.30-0.70)
[2018-11-27 16:30] LABS: Prothrombin Time 11.5 Seconds (9.4-12.1)
[2018-11-27] MEDS: Heparin 25,000 UNIT/500 ML D5W 25,000 UNIT/500 ML BAG IVC SCH (17:45)
--- NOTE | 2018-11-27 18:04 | Event Note ---
Date of Encounter: 11/27/18 Time of Encounter: 15:00 - Cardiology Event Note pt still has similar mild chest chest pain, anxious, nausea. Mild sinus tachycardia, BP stable, no O2 requirement. on NTG gtt 5, ASA/brilinta, low dose BB TTE EF 50-55%, hypokinesis of apex, mid anterior and anteroseptal segments, mild PH, no pericardial effusion. A: aborted STEMI, culprit LAD, FFR 0.82 ongoing mild angina sinus tachycardia P: c/w NTG drip, morphin prn short-mid acting benzo start heprin drip c/w DAPT low dose BB lasix prn if dyspnea and hypoxemia
[2018-11-27] MEDS: *HR* Morphine 2 MG/ML SYRINGE IVP PRN (19:33)
[2018-11-27] MEDS: *HR* Ticagrelor 90 MG TABLET PO SCH (21:38)
[2018-11-28] MEDS ORDERED: *HR* LORazepam 2 MG/ML VIAL IVP ONE (00:24)
[2018-11-28 00:41] LABS: Hematocrit 37.5 % (35.3-44.9); Hemoglobin 12.8 g/dL (11.5-15.4); Mean Corpuscular HGB Conc 34.1 g/dL (31.6-35.5); Mean Corpuscular Hemoglobin 30.3 pg (28.0-33.3); Mean Corpuscular Volume 88.9 fL (83.0-100.0); Mean Platelet Volume 10.9 fL (9.4-12.4); Platelet Count 275 K/mcL (140-400); Red Blood Count 4.22 M/mcL (3.82-4.97); Red Cell Distribution Width 12.7 % (11.5-14.5)
[2018-11-28 00:54] LABS: BUN/Creatinine Ratio 16 (6-26); Blood Urea Nitrogen 11 mg/dL (6-20); Calcium 8.9 mg/dL (8.6-10.3); Carbon Dioxide 20 mEq/L (23-29); Chloride 105 mEq/L (98-107); Glucose 131 mg/dL (70-105); Osmolality,Calculated 281 (280-300); Potassium 3.9 mEq/L (3.5-5.1); Sodium 135 mEq/L (136-145); eGFR For Non-African Americans > 60 (> 60)
[2018-11-28] MEDS: BuPROPion XL (24 HR) 150 MG TABLET PO SCH (08:38)
[2018-11-28] MEDS: *HR* Ticagrelor 90 MG TABLET PO SCH ×2 (08:38→20:42)
[2018-11-28] MEDS: Aspirin 81 MG TAB.CHEW PO SCH (08:38)
[2018-11-28] MEDS ORDERED: FLUoxetine HCl Oral Soln 20 MG/5 ML UDC PO SCH (09:00)
--- NOTE | 2018-11-28 09:11 | Cardiology Progress Note ---
Addendum entered and electronically signed by Hermilo House DO 11/28/18 12:56: I have personally performed a face to face evaluation on this patient. I have re viewed and agree with the care plan. History and Exam by me shows: CC: Chest pain Pt reports had recurrent episodes of chest pain last PM after ntg drip discontinued, resolved with increased sedation, heparin infusion. Pt reports chest pain is an dull ache, mid epigastric, 8/10 at most severe, has occurred at rest, associated with mild shortness of breath. She is now pain free. ROS: Reviewed PMH: reviewed, correction, did not have second cath at [facility], had second opinion with Dr. Edwardo Dior at [facility], reviewed records from [place], but did not undergo second cath. Labs and Xrays reviewed. PE: agree with findings as documented. IMP/Plan; 1. NSTEMI with significant troponin elevation to > 50, discussed options, plan is LHC with IVUS LMT, CX in am, risks and benefits discussed, agrees to proceed. Addendum entered and electronically signed by Aziza Harrison CNP 11/28/18 11:22: Repeat troponin 53.32; discussed with Dr. House, will continue to plan for LHC in AM. See below. Remains chest pain free. Original Note: Date of Encounter: 11/28/18 Time of Encounter: 09:00 Assessment and Plan (1) ST elevation myocardial infarction (STEMI) Current Visit: Yes Status: Acute Patient presented on 11/27/18, ECG met criteria for acute anterolateral STEMI. LHC: moderate, non-obstructive CAD; 50% pLAD with heavy tubular stenosis, FFR 0.82, 40% pLCx with hazy tubular stenosis, FFR 0.92; 50% pOM; minimal RCA. TTE: LVEF 50-55%, mild segmental LV systolic dysfunction, imld TR, mild PH. Prior TTE 2017 shows LVEF 60-65% with normal wall motion. Developed acute chest pain yesterday afternoon--chest tightness/indigestion with neck tightness; started on IV heparin gtt/NTG gtt and was given IV ativan. Has been chest pain free overnight. No recurrent discomfort this AM. Reports hx of PA in 2009--underwent LHC at [facility] and [facility]--will request [facility] films/reports for review. [facility] this admission reviewed with Dr. House and Dr. Weber, will plan for repeat LHC in AM with IVUS to determine if PCI is warranted. Optimize cardiac meds today including betablocker and addition of Ranexa (caution use of nitrates given hx of headaches). Continue DAPT, statin, heparin gtt. NPO after MN except medications. Qualifiers: Involved coronary artery: LAD coronary artery Qualified Code(s): I21.02 - ST elevation (STEMI) myocardial infarction involving left anterior descending coronary artery (2) Hyperlipidemia Current Visit: Yes Status: Chronic Continue statin therapy. Risk factor risk factor modification. Qualifiers: Hyperlipidemia type: unspecified Qualified Code(s): E78.5 - Hyperlipidemia, unspecified (3) DVT prophylaxis Current Visit: No Status: Acute On IV heparin gtt Discussion w patient/family: The assessment and plan as outlined above was discussed with the patient and/or family members who expressed understanding and agreement. All questions were answered. Thank you for involving us in the care of your patient. Please call with any questions. The patient will be discussed and reviewed with Dr. House; changes to be made accordingly. Subjective Principal diagnosis: anterolateral STEMI Interval history: Seen and examined. Reviewed past medical history, HPI, LHC, and TTE. Reviewed event note from yesterday evening (Dr. Cantu). No complaints this morning upon exam except headache, reports prn Tylenol this AM seems to be helping. No chest or neck pain this morning upon exam, however has been on bedrest. Hepar in gtt infusing. Mildly tachycardiac this AM, BP stable. Objective Vital Signs, Last 4 Hours Temp Pulse Resp BP Pulse Ox 11/28/18 07:35 99 F 105 21 121/76 97 General: Conversant, No Apparent Distress HEENT: Atraumatic, Normocephaly, Mucus Membranes Moist Cardiac: Reg Rate and Rhythm (mild tachycardia) Lungs: Normal Breath Sounds Neuro: Alert and responsive Abdomen: Soft Skin: No rashes noted on visualized skin Musculoskeletal: No Chest Wall Tenderness Extremities: No Edema, Normal Pulses Other: right groin: dressing C/D/I. +2 DP/PT pulses. No bleeding, hematoma. Results 11/28/18 00:10 11/28/18 00:10 Lab Results 11/27/18 11/27/18 11/28/18 02:25 15:51 00:10 WBC 15.9 H Hgb 12.8 Hct 37.5 Plt Count 275 INR 1.0 Sodium 138 Potassium 3.2 L Chloride 104 Carbon Dioxide 22 L BUN 18 Creatinine 0.80 Glucose 157 H Calcium 9.8 Magnesium 1.8 Troponin I 0.27 H* 11/28/18 00:10 WBC Hgb Hct Plt Count INR Sodium 135 L Potassium 3.9 Chloride 105 Carbon Dioxide 20 L BUN 11 Creatinine 0.68 Glucose 131 H Calcium 8.9 Magnesium Troponin I Impressions Echocardiogram 11/27/18 04:15 Impressions: LVEF 50-55%. Mild segmental left ventricular systolic dysfunction. Normal left ventricular diastolic function. Normal right ventricular structure and function. Mild tricuspid regurgitation. Mild pulmonary hypertension. Left Ventricular Wall Motion: Rest Echo Findings The apex, apical inferior, apical anterior, mid anterior, apical septal, mid inferior septal, apical lateral, mid anterior septal and basal anterior septal song were hypokinetic. All other wall segments showed normal motion. Findings: Study Quality * Technically adequate exam. ECG Findings * Normal sinus rhythm. Left Ventricle * LVEF 50-55%. * Mild segmental left ventricular systolic dysfunction. * Normal LV chamber size, wall thickness. * Normal left ventricular diastolic function. Right Ventricle * Normal right ventricular structure and function. Left Atrium * Normal left atrial size. Right Atrium * Normal right atrial size. Interatrial Septum * Interatrial septum not well evaluated. * No evidence of PFO by color Doppler. Aortic Valve * Aortic valve not well visualized. * No aortic stenosis. * No aortic regurgitation. Mitral Valve * Mildly calcified mitral valve leaflets. * No mitral stenosis. * Trace mitral regurgitation. Tricuspid Valve * Normal tricuspid valve structure. * No tricuspid stenosis. * Mild tricuspid regurgitation. * Estimated RVSP is 39 mmHg. * Estimated RA pressure is 8 mmHg. * Mild pulmonary hypertension. Pulmonic Valve * Pulmonic valve is not well visualized. * No pulmonic stenosis. * No pulmonic regurgitation. Aorta * Normally sized aortic root. Pericardium * The pericardium appears normal. IVC * The IVC is not dilated. * < 50% respiratory change. Active Medications Acetaminophen (Tylenol) 500 mg PO Q6H PRN PRN Reason: Pain/Headache Stop: 05/29/19 11:15 Last Admin: 11/28/18 08:39 Dose: 500 mg Alprazolam (Xanax) 0.5 mg PO BID PRN; Protocol PRN Reason: Anxiety Stop: 05/29/19 11:15 Aspirin (Aspirin) 81 mg PO DAILY DIMITRIOS Stop: 05/29/19 09:01 Last Admin: 11/28/18 08:38 Dose: 81 mg Atorvastatin Calcium (Lipitor) 40 mg PO HS DIMITRIOS Stop: 05/29/19 21:01 Last Admin: 11/27/18 21:37 Dose: 40 mg Bupropion HCl (Wellbutrin Xl) 300 mg PO DAILY DIMITRIOS Stop: 05/29/19 09:01 Last Admin: 11/28/18 08:38 Dose: 300 mg Fluoxetine HCl (Prozac) 60 mg PO DAILY DIMITRIOS Stop: 05/29/19 11:16 Last Admin: 11/28/18 08:43 Dose: 60 mg Heparin Sodium (Porcine) (Heparin) 4,000 unit IVP Q6HR PRN PRN Reason: SEE COMMENTS Stop: 05/29/19 15:26 Heparin Sodium (Porcine) (Heparin) 2,000 unit IVP Q6H PRN PRN Reason: SEE COMMENTS Stop: 05/29/19 15:26 Heparin Sodium/Dextrose (Heparin 25,000 Unit/500 Ml D5w) 25,000 unit in 500 mls @ 19.051 mls/hr IVC .Q24H [facility]; Protocol Stop: 05/29/19 15:31 Last Titration: 11/28/18 07:34 Dose: 12 unit/kg/hr, 19.051 mls/hr Metoprolol Tartrate (Lopressor) 5 mg IVP Q6HR PRN PRN Reason: SEE COMMENTS Stop: 05/29/19 04:15 Metoprolol Tartrate (Lopressor) 25 mg PO BID [facility] Stop: 05/30/19 21:01 Morphine Sulfate (Morphine Sulfate) 4 mg IVP Q3H PRN PRN Reason: Severe Pain (7-10) CHEST PAIN Stop: 05/29/19 04:15 Last Admin: 11/27/18 19:33 Dose: 4 mg Nitroglycerin (Nitroglycerin) 0.4 mg SL Q5MIN PRN PRN Reason: Chest Pain Stop: 05/29/19 02:27 Omeprazole (Prilosec) 20 mg PO DAILY@0730 [facility]; Protocol Stop: 05/30/19 07:31 Last Admin: 11/28/18 08:39 Dose: 20 mg Ondansetron HCl (Zofran) 4 mg IVP Q6HR PRN; Protocol PRN Reason: Nausea And Vomiting Stop: 05/29/19 10:25 Last Admin: 11/27/18 21:37 Dose: 4 mg Ranolazine (Ranexa) 1,000 mg PO BID [facility] Stop: 05/30/19 09:16 Ticagrelor (Brilinta) 90 mg PO BID [facility] Stop: 05/29/19 09:01 Last Admin: 11/28/18 08:38 Dose: 90 mg - Imaging and Cardiology Echo: report reviewed Cardiac cath: report reviewed Other Results: 12 hour tele: avg [id number] SR. - EKG Interpretation EKG results cardiology: personally reviewed Consult Discharge Plan - Plan Instructions: Left Heart Catheterization (DC), Right Heart Catheterization (DC) Referrals: NONE,PCP [Primary Care Provider] -
[2018-11-28] MEDS: Ranolazine 500 MG TAB.ER.12H PO SCH ×2 (12:43→20:42)
--- NOTE | 2018-11-28 15:56 | Electrocardiograph Report ---
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
--- NOTE | 2018-11-28 16:04 | Electrocardiograph Report ---
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
--- NOTE | 2018-11-28 16:10 | Electrocardiograph Report ---
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
--- NOTE | 2018-11-28 16:16 | Electrocardiograph Report ---
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
[2018-11-28] MEDS: Heparin 25,000 UNIT/500 ML D5W 25,000 UNIT/500 ML BAG IVC SCH (17:25)
[2018-11-28] MEDS: Ondansetron 4 MG/2 ML VIAL IVP PRN (20:43)
[2018-11-29 07:27] LABS: Basophils % 0.4 %; Eosinophils # 0.1 K/mcL (0.0-0.6); Eosinophils % 0.8 %; Hematocrit 34.3 % (35.3-44.9); Hemoglobin 11.7 g/dL (11.5-15.4); Immature Granulocytes % 0.3 % (0-4); Lymphocytes % 18.7 %; Mean Corpuscular HGB Conc 34.1 g/dL (31.6-35.5); Mean Corpuscular Hemoglobin 30.6 pg (28.0-33.3); Mean Corpuscular Volume 89.8 fL (83.0-100.0); Monocytes # 0.7 K/mcL (0.0-1.3); Platelet Count 179 K/mcL (140-400); Red Blood Count 3.82 M/mcL (3.82-4.97); Red Cell Distribution Width 12.8 % (11.5-14.5); Segmented Neutrophils % 69.8 %
[2018-11-29 07:46] LABS: BUN/Creatinine Ratio 12 (6-26); Blood Urea Nitrogen 10 mg/dL (6-20); Carbon Dioxide 25 mEq/L (23-29); Chloride 104 mEq/L (98-107); Glucose 96 mg/dL (70-105); Osmolality,Calculated 279 (280-300); Potassium 3.4 mEq/L (3.5-5.1); Sodium 135 mEq/L (136-145); eGFR For Non-African Americans > 60 (> 60)
[2018-11-29 07:59] LABS: Lymphocytes # 1.4 K/mcL (0.6-4.6)
[2018-11-29] MEDS: Ranolazine 500 MG TAB.ER.12H PO SCH ×2 (09:49→19:39)
[2018-11-29] MEDS: *HR* Ticagrelor 90 MG TABLET PO SCH ×2 (09:50→19:40)
[2018-11-29] MEDS: BuPROPion XL (24 HR) 150 MG TABLET PO SCH (09:50)
[2018-11-29] MEDS: Aspirin 81 MG TAB.CHEW PO SCH (09:50)
[2018-11-29] MEDS ORDERED: Heparin 1,000 UNITS/500 mL 500 ML ONE (12:29)
[2018-11-29] MEDS ORDERED: *HR* Heparin 10,000 UNIT/10 ML VIAL ONE (12:29)
[2018-11-29] MEDS ORDERED: Nitroglycerin 1,000 MCG/10 ML VIAL IV ONE (12:29)
[2018-11-29] MEDS ORDERED: ISOVUE-370 200 ML INFUS..BTL ONE ×2 (12:29→13:57)
[2018-11-29] MEDS ORDERED: 0.9 % Sodium Chloride 1,000 ML ONE ×3 (12:29→17:09)
[2018-11-29] MEDS ORDERED: *HR* Midazolam HCl 2 MG/2 ML VIAL ONE ×2 (12:46→13:12)
[2018-11-29] MEDS ORDERED: *HR* FentaNYL (PF) 100 MCG/2 ML VIAL ONE (12:47)
--- NOTE | 2018-11-29 13:08 | Pre-Sedation Evaluation ---
Pre-sedation evaluation - Pre-sedation checklist Date of procedure: 11/29/18 Procedure: left heart cath Recent Vitals: Last Vital Signs Temp 98.3 F 11/29/18 10:22 Pulse 81 11/29/18 10:22 Resp 18 11/29/18 10:22 BP 105/45 11/29/18 10:22 Pulse Ox 97 11/29/18 10:22 H&P (including ROS) documented in medical record: Yes Previous reaction to sedatives/anesthetics: No Dietary Status: NPO after Midnight Dentition: full dentition ASA Classification *see protocol: CLASS II-Mild systemic disease Plan of Care: Pt appropriate candidate for procedure/moderate/conscious sedation, Risks/benefits of procedure/sedation discussed w/ patient/family Cardiac Registry (Cardio Only) - Functional Capacity Functional Capacity: >=4 METS with symptoms - Clincal Frailty Scale Clinical Frailty Scale: Managing Well
[2018-11-29] MEDS ORDERED: Ondansetron 4 MG/2 ML VIAL ONE (13:32)
--- NOTE | 2018-11-29 14:08 | Event Note ---
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 Appears the dissection is healing. Proximal LAD TERRA ~7mm.
[2018-11-29] MEDS ORDERED: Isovue-370 500 ML INFUS..BTL IV ONE (14:30)
--- NOTE | 2018-11-29 14:52 | Invasive Diagnostic Lab Proc ---
Name: Stephany Bauer Date of Study: 11/29/2018 Date: 1975 Ht: 66.1in Medical Record#: [id number] Age: 43 Wt: 166.89lb Gender: Female BSA: 1.85 Order #: [id number] BMI: 26.82 Physicians Procedure Physician: Michael Weber MD, [facility] Referring MD: Referring MD: Staff Name Position Time In Davin Dubon RN Passenger Service Supervisor 12:37 PM Jaylon Cordero RT (R) Monitor 12:37 PM Emily Cordero RT (R) Scrub 12:38 PM Indications Indication Non-Stemi Procedures Performed Procedure L HRT ARTERY/VENTRICLE ANGIO IVUS CORONARY 1ST VESSEL S&I Pre-Procedure Checklist Informed consent is complete signed and on chart. H&P is on chart. ID band is on and ID verified with patient. Patient NPO for procedure The procedure was described for the patient and questions were answered. Blood Pressure: 104/62 ECG is on chart. Rhythm: NSR Plan of Care Patient will tolerate the procedure without complications. Adequate level of comfort will be maintained. Hemodynamics will remain stable Patient will recover from procedure without complications. Respiratory function will be maintained. Cardiac rhythm will remain stable. Patient temperature will be maintained. Patient and/or family have verbalized understanding of the procedure. Patient Education Chief Complaint/Reason for Test: Cardiac Cath Developmental Category: Adult (18-64 years) Developmentally Appropriate for Age: Yes Learning Barriers: None Education Needs: Procedure Education Method: Verbal Information Taught: Cardiac Cath Educational Evaluation: Able to repeat information Intravenous Access Time IV Size Location DC'd Fluid/Drip Rate Units RN 12:55 PM 18g 1 1/4" Patent On Arrival Rt Antecubital 12:55 PM 20g 1 1/4" Patent On Arrival Lt Antecubital 0.9NaCl 25 ml/hr Davin Dubon RN Allergies meperidine Vital Signs Time BP (mmHg) HR (bpm) O2 Sat. RR (bpm) LOC 12:56 PM 103 / 59 73 100 % 12 5 = Fully awake and oriented or at pre-proc level 12:56 PM / % 4 = Oriented but drowsy 01:11 PM / % 4 = Oriented but drowsy 01:26 PM / % 4 = Oriented but drowsy 01:41 PM / % 4 = Oriented but drowsy 01:56 PM / % 4 = Oriented but drowsy 01:02 PM 103 / 59 78 100 % 01:06 PM 105 / 51 75 100 % 16 01:11 PM 100 / 53 71 96 % 10 01:16 PM 98 / 57 71 94 % 17 01:21 PM 99 / 54 74 96 % 22 01:26 PM 98 / 51 73 98 % 13 01:31 PM 94 / 53 73 96 % 01:36 PM 102 / 63 78 94 % 13 01:41 PM 102 / 56 84 94 % 13 01:46 PM 102 / 53 89 95 % 21 01:51 PM 104 / 60 89 95 % 13 01:56 PM 103 / 59 91 95 % 13 02:01 PM 101 / 53 93 96 % 20 02:06 PM 103 / 52 95 99 % 6 02:15 PM 101 / 44 88 97 % 11 4 = Oriented but drowsy 02:30 PM 99 / 50 81 100 % 12 4 = Oriented but drowsy Procedural Medications Time Medication Dose Units Method Given By 01:00 PM Oxygen 2 L/min nasal cannula Davin Dubon RN 01:04 PM Versed 2 mg Intravenous Davin Dubon RN 01:05 PM Fentanyl 50 mcg Intravenous Davin Dubon RN 01:12 PM Versed 1 mg Intravenous Davin Dubon RN 01:13 PM Lidocaine 2% 20 ml Subcutaneous Michael Weber MD, FACC 01:28 PM Dopamine 10 mg Intravenous Davin Dubon RN 01:31 PM Dopamine 15 mg Intravenous Davin Dubon RN 01:33 PM Zofran 8 mg Intravenous Davin Dubon RN 01:42 PM Heparin 3000 units Intravenous Davin Dubon RN 01:51 PM Nitroglycerin 50 mcg Michael Weber MD 01:52 PM Dopamine 20 mg Intravenous Davin Dubon RN 02:03 PM Dopamine 15 mg Intravenous Davin Dubon RN 02:37 PM Dopamine 10 mcg/min Intravenous Sylvia Knott RN ASA Classification: CLASS II- Mild systemic disease (i.e. well-controlled diabetes, hypertension, asthma, cigarette smoking) Michael Score Preprocedure Postprocedure Activity 2- Moves 4 extremities sustained head lift Activity Circulation 2- SBP +/= 20 points of pre-anesthetic level Circulation Consciousness 2- Awake and alert oriented x 3 Consciousness O2 Saturation 2- Able to maintain O2 satruation of 92% on room air O2 Saturation Respiratory 2- Able to deep breathe and cough well Respiratory Total Score 10 Total Score Contrast Agent: Isovue Diagnostic Contrast: 115 ml Total Contrast: 115 ml Fluoro Dose: 3678 mGy Activated Clotting Time Time Seconds to Clot 01:39 PM 65 01:41 PM 120 02:08 PM 208 Procedure Log Time Note Enter By 12:37 PM Patient charges- Angio tray pack, Navilyst 3mm J, Pulse Oximetry and ACIST tubing and transducer [email or web address] 12:37 PM Davin Dubon RN Position: Passenger Service Supervisor Time in: 12:37 [facility] 12:38 PM Jaylon Cordero RT (R) Position: Monitor Time in: 12:37 [email or web address] 12:38 PM Emily Cordero RT (R) Position: Scrub Time in: 12:38 [email or web address] 12:38 PM Clinical Presentation: Non-STEMI [email or web address] 12:56 PM Pt arrived to supervisor dental laboratory 2 at 12:55 [email or web address] 12:56 PM Case Delayed No [email or web address] 12:56 PM Time: 12:56 Patient comfortable and pain free: Yes [email or web address] 12:56 PM Time: 12:56LOC: 5 = Fully awake and oriented or at pre-proc level [email or web address] 12:58 PM CathStat 12:59 PM Physician arrived 12:59 [facility] 12:59 PM Meet and greet completed [facility] 12:59 PM Sign in performed according to hospital policy. Informed consent was obtained. [facility] 12:59 PM Procedure start 12:59 [email or web address] 01:00 PM ASA Class CLASS II- Mild systemic disease (i.e. well-controlled diabetes, hypertension, asthma, cigarette smoking) [email or web address] 01:00 PM Time: 13:00 Oxygen on at 2 L/min per nasal cannula by Davin Dubon RN [facility] 01:01 PM Vitals capture started with the following parameters, Patient=Adult, Interval=5 min, Initial Pfxjglkc=401 mmHg, Deflation Rate=5 mmHg, Cuff placed on Right Arm 01:02 PM HR=78 bpm, TPAW=511/59 mmhg, NgH4=171.0 % 01:04 PM Hair removed from procedure site in procedure lab using clippers. Bilateral groin prepped with Chloraprep by Jaylon Cordero (R), then patient was draped. Skin intact. [email or web address] 01:05 PM Time: 13:04 Versed 2 mg Intravenous Given by Davin Dubon RN [facility] 01:05 PM Time: 13:05 Fentanyl 50 mcg Intravenous Given by Davin Dubon RN 01:05 PM Recorded ECG: HR=75 Condition=Condition 1 01:06 PM HR=75 bpm, VHMN=809/51 mmhg, DeE0=019.0 %, Resp=16 B/min, EtCO2=34 mmHg 01:08 PM Pressure channel 1 zeroed. 01:11 PM Time: 12:56LOC: 4 = Oriented but drowsy :11 PM Time: 12:56 Patient comfortable and pain free: Yes :11 PM HR=71 bpm, PABQ=132/53 mmhg, SpO2=96.0 %, Resp=10 B/min 01:12 PM Time out was performed according to hospital policy. Conscious sedation and anesthesia was achieved (see medication log with in this report above) 01:12 PM Time: 13:12 Versed 1 mg Intravenous Given by Davin Dubon RN 01:13 PM Time: 13:13 20 ml Lidocaine 2% to right groin Subcutaneous Given by Michael Weber MD, [facility] 01:15 PM Unsuccessful access attempt # 1 into the right Femoral artery. Manual pressure applied to achieve hemostasis.. 01:16 PM HR=71 bpm, NIBP=98/57 mmhg, SpO2=94.0 %, Resp=17 B/min 01:17 PM Access obtained by percutaneous puncture. 5Fr 10cm Terumo [place] sheath placed in right Femoral artery. [id number] [email or web address] 28:17 PM 0.035 260cm Navilyst 3mmJ wire [id number] :18 PM 5Fr FL 4 catheter inserted over the wire [facility] :19 PM LCA angiography performed in multiple views. :19 PM Recorded Pressure: Ao, HR=73, Condition=Condition 1 (Aorta) Ao 84/53/64 01:21 PM HR=74 bpm, NIBP=99/54 mmhg, SpO2=96.0 %, Resp=22 B/min, EtCO2=35 mmHg 01:22 PM Catheter removed :22 PM 5Fr FR 4 catheter inserted over the wire [facility] :23 PM RCA angiography performed in multiple views. :24 PM Coronary Dominance: right :24 PM Recorded Pressure: Ao, HR=73, Condition=Condition 1 (Aorta) Ao 68/48/59 01:26 PM Time: 13:11 Patient comfortable and pain free: Yes [email or web address] : PM Recorded Pressure: Ao, HR=75, Condition=Condition 1 (Aorta) Ao 52/18/32 01:26 PM HR=73 bpm, NIBP=98/51 mmhg, SpO2=98.0 %, Resp=13 B/min 01:26 PM Time: 13:11LOC: 4 = Oriented but drowsy [email or web address] :28 PM Time: 13:28 Dopamine 10 mg Intravenous Given by Davin Dubon RN Henderson pump [email or web address] :28 PM Catheter removed [email or web address] 28: PM Physician reviewing films [email or web address] 28:29 PM Lesion found in Proximal RCA. Pre Stenosis: 40 Pre CITLALI Flow: bw:29 PM Right Coronary, Right Posterior Descending Arteries with Right Posterolateral and Acute Marginal branches with 40 % stenosis. If graft is supplying this area, 0 % stenosis [email or web address] 28:29 PM Catheter crossed the aortic valve and was selectively placed in the left ventricle. Pressures recorded on pullback for left heart catheterization. bw:29 PM Recorded Pressure: LV, HR=77, Condition=Condition 1 (Left Ventricle) LV 70/1/12 01:29 PM Pressure channel 1 zero failed. 01:29 PM Pressure channel 1 zero failed. 01:30 PM Pressure channel 1 zero failed. 01:30 PM Pressure channel 1 zeroed. 01:30 PM Recorded Pressure: LV, HR=75, Condition=Condition 1 (Left Ventricle) LV 71/3/12 01:30 PM Bolus angiogram of left Ventricle complete: 12 ml/sec for a total of 30 mls bw:31 PM Recorded Pressure: LV, Ao, HR=74, Condition=Condition 1 (Left Ventricle) LV 79/4/15, (Aorta) Ao 75/42/57 01:31 PM HR=73 bpm, NIBP=94/53 mmhg, SpO2=96.0 % 01:32 PM Time: 13:31 Dopamine 15 mg Intravenous Given by Davin Dubon RN Henderson pump [email or web address] 01:32 PM Physician reviewing films [email or web address] 01:33 PM Time: 13:33 Zofran 8 mg Intravenous Given by Davin Dubon RN ilson 01:34 PM Catheter removed [email or web address] 01:34 PM Inflation device was opened. [email or web address] 01:36 PM HR=78 bpm, NGGI=066/63 mmhg, SpO2=94.0 %, Resp=13 B/min 01:39 PM At 13:39 the ACT was 65 seconds. [email or web address] 01:41 PM Sheath exchanged for a 6 Fr 11 cm Cordis Lori sheath [id number] [email or web address] 01:41 PM 6Fr EBU 3.5 Medtronic guide catheter was used to cannulate the PCI vessel successfully. reused? No [email or web address] :41 PM At 13:41 the ACT was 120 seconds. [email or web address] 01:41 PM HR=84 bpm, VFWU=719/56 mmhg, SpO2=94.0 %, Resp=13 B/min 01:41 PM Time: 13:26LOC: 4 = Oriented but drowsy [email or web address] :41 PM Time: 13:26 Patient comfortable and pain free: Yes [email or web address] 01:42 PM Time: 13:42 Heparin 3000 units Intravenous Given by Davin Dubon RN [email or web address] 01:44 PM Guide catheter removed intact. [email or web address] 01:44 PM 6Fr JL4 Runway guide catheter was used to cannulate the PCI vessel successfully. reused? No [email or web address] 01:46 PM HR=89 bpm, AYHL=194/53 mmhg, SpO2=95.0 %, Resp=21 B/min 01:49 PM .014 [place] 190cm guide wire across target lesion- successful. reused? No [email or web address] 01:50 PM 3.6Fr/40mHz [employer] Opti Cross IVUS catheter was inserted into guide catheter and advanced to lesion LAD. IVUS study was done and the catheter was removed. [email or web address] 01:51 PM HR=89 bpm, HIZE=130/60 mmhg, SpO2=95.0 %, Resp=13 B/min, EtCO2=35 mmHg 01:51 PM Time: 13:51 Nitroglycerin 50 mcg Given by Michael Weber MD [email or web address] 01:52 PM Time: 13:52 Dopamine 20 mg Intravenous Given by Davin Dubon RN Henderson pump [email or web address] 01:56 PM IVUS catheter removed intact [email or web address] 01:56 PM HR=91 bpm, XKUU=314/59 mmhg, SpO2=95.0 %, Resp=13 B/min 01:56 PM Time: 13:41 Patient comfortable and pain free: Yes 01:56 PM Time: 13:41LOC: 4 = Oriented but drowsy 01:57 PM 3.6Fr/40mHz [employer] Opti Cross IVUS catheter was inserted into guide catheter and advanced to lesion Circ.. IVUS study was done and the catheter was removed. 01:58 PM Recorded ECG: HR=93 Condition=Condition 1 01:58 PM IVUS catheter removed intact 01:59 PM Guide wire removed intact. 02:00 PM Guide catheter removed intact. 02:00 PM 5 fr JL4 advanced 02:01 PM LCA angiography performed in multiple views. 02:01 PM HR=93 bpm, YRUD=270/53 mmhg, SpO2=96.0 %, Resp=20 B/min 02:01 PM Recorded Pressure: Ao, HR=94, Condition=Condition 1 (Aorta) Ao 93/22/45 02:02 PM Catheter removed 02:03 PM Time: 14:03 Dopamine 15 mg Intravenous Given by Davin Dubon RN Henderson pump 02:03 PM Bolus angiogram of right Femoral complete: 4 ml/sec for a total of 7 mls 02:05 PM Procedure completed at 14:04 11/29/2018 02:05 PM Sign out completed: Radiation Dose 382.63 mGy, 3678.39 cGy/cm2 Fluoro Time: 7.7 Isovue 370 - 200ml contrast 115 ml given by Michael Weber MD, FACC. Complications: None. The patient was discharged out of the supervisor cytogenetic laboratory in stable condition. Cardiac Rehab Consult needed: NoConfirmed administered medications: Yes 02:05 PM Isovue 370 - 200ml,1 Bottle(s) used. 02:05 PM Sheath left in place to be pulled on floor/holding areaV+Pad [email or web address] 02:05 PM Estimated Blood Loss: less than 20cc [email or web address] 02:05 PM Post ECG NSR 02:06 PM Post Blood Pressure 101/53 [email or web address] 02:06 PM Information taught Cardiac Cath and IVUS/Flowire [email or web address] 02:06 PM Education needs Procedure, Plan of Care, and Disease Process [email or web address] 02:06 PM Learning barriers :Sedated [email or web address] 02:06 PM Education Methods Verbal [email or web address] 02:06 PM Education evaluation Needs further instruction [email or web address] 02:06 PM Family placed in consult room. [email or web address] 02:06 PM Complications: None [email or web address] 02:06 PM HR=95 bpm, BCRU=925/52 mmhg, SpO2=99.0 %, Resp=6 B/min 02:07 PM Site status No bleeding/hematoma - Rt Groin as reported by Emily Cordero RT (R) at 14:07 [email or web address] 02:07 PM Opsite applied [email or web address] 02:08 PM At 14:08 the ACT was 208 seconds. [email or web address] 02:09 PM 5 out of 10 neck and shoulder pain, comparable to yesterdays pain per patient. [email or web address] 02:11 PM Vitals capture stopped. 02:12 PM Time: 13:56LOC: 4 = Oriented but drowsy [email or web address] 02:12 PM Time: 13:56 Patient comfortable and pain free: Yes [email or web address] 02:13 PM Delay to floor Bed availability [email or web address] 02:15 PM Patient out of room: 14:15 [email or web address] 02:15 PM Report given to maylin HARTLEY Pt taken to Holding room Room #4. 14:15 [email or web address] 02:19 PM patient checked in to HR 4 fridammelza 02:36 PM pt reports continued nausea and begins to vomit. Dr. Weber made aware per ODILIA Charles 02:37 PM Time: 14:37 Dopamine 10 mcg/min Intravenous Given by Sylvia Knott RN Henderson pump per verbal order Dr. Tia chan 02:42 PM Report given to Denzel HARTLEY Pt taken to 2N #8. 14:42 rocio Complications Complication None None Hemodynamics Pressures Site Systolic/A Wave Diastolic/V Wave Mean AO 84 53 64 AO 68 48 59 AO 52 18 32 LV 70 1 12 LV 71 3 12 LV 79 4 15 AO 75 42 57 AO 93 22 45 Post Procedure Information Blood Pressure: 101/53 mmHg Rhythm: NSR Post procedural instructions were given Site Checks Time Location Status Staff Sheath In? Note 02:07 PM Rt Groin No bleeding/hematoma Emily Cordero RT (R) 02:15 PM Rt Groin No bleeding/ No Hematoma Maylin Triplett RN Yes 02:30 PM Rt Groin No bleeding/ No Hematoma Maylin Triplett RN Yes Pulses Time Site Pre-Procedure Post-Procedure Note 11/29/2018 12:55:00 PM Bilateral radial 2+ 11/29/2018 12:55:00 PM Bilateral DP 2+ 11/29/2018 2:15:00 PM Bilateral DP & PT 2+ 11/29/2018 2:30:00 PM Bilateral DP & PT 2+ Updated by Maylin Triplett RN on 11/29/2018 2:44:47 PM electronically signed on 11/29/2018 2:45:31 PM with status of Final
[2018-11-29] MEDS ORDERED: *HR* Atropine Sulfate 1 MG/10 ML SYRINGE ONE (17:05)
[2018-11-29] MEDS: *HR* Morphine 2 MG/ML SYRINGE IVP PRN (17:12)
[2018-11-29] MEDS: FLUoxetine 20 MG CAPSULE PO SCH (18:33)
[2018-11-29] MEDS: Ondansetron 4 MG/2 ML VIAL IVP PRN (20:57)
[2018-11-30] MEDS: Ranolazine 500 MG TAB.ER.12H PO SCH ×2 (08:20→20:05)
[2018-11-30] MEDS: Aspirin 81 MG TAB.CHEW PO SCH (08:20)
[2018-11-30] MEDS: BuPROPion XL (24 HR) 150 MG TABLET PO SCH (08:20)
[2018-11-30] MEDS: FLUoxetine 20 MG CAPSULE PO SCH (08:21)
[2018-11-30] MEDS: *HR* Ticagrelor 90 MG TABLET PO SCH ×2 (08:21→20:05)
--- NOTE | 2018-11-30 08:42 | Cardiology Progress Note ---
Date of Encounter: 11/30/18 Time of Encounter: 08:40 Assessment and Plan (1) CAD (coronary artery disease) Current Visit: No Status: Acute Per Cardiology: Patient presented on 11/27/18, ECG met criteria for acute anterolateral STEMI. LHC: moderate, non-obstructive CAD; 50% pLAD with heavy tubular stenosis, FFR 0.82, 40% pLCx with hazy tubular stenosis, FFR 0.92; 50% pOM; minimal RCA. TTE: LVEF 50-55%, mild segmental LV systolic dysfunction, imld TR, mild PH. Prior TTE 2017 shows LVEF 60-65% with normal wall motion. Developed during hospital stay-- chest tightness/indigestion with neck tightness. Repeat Cath: Impressions: There is severe segmental LV Dysfunction EF 30% Recommendations: Optimal medical therapy of patient's disease. Aggressive risk factor modification but avoidance of strenuous physical activity both intense aerobic activity and heavy weight lifiting. Cardiac rehab Consider workup for fibromuscular dysplasia as well as full body CTA to assess for aneurysm Head CTA tomorrow to assess for aneurysm given history of headaches Lesion Findings/Interventions * Left Main Coronary Artery The LMCA is angiographically free of disease. * Left Anterior Descending The LAD has proximal 50% stenosis, mid 50% stenosis and mid-distal vessel is small The 1st Diagonal is angiographically free of significant disease. * Circumflex The Circumflex is angiographically free of significant disease. The 1st Marginal has 60% stenosis * Right Coronary Artery There is a 40% stenosis in the Proximal RCA - spasm during cath. Previous coronary angio 2 days ago without obstructive disease Head CT pending. We will check limited echo to reassess EF. On aspirin, Brilinta, statin, beta mitchell, and Ranexa. Discussed with Dr. House, we will proceed with carotid duplex as well. Plan to monitor another 24 hours. Qualifiers: Coronary Disease-Associated Artery/Lesion type: [place] artery [place] vs. transplanted heart: [place] heart Associated angina: angina presence unspecified Qualified Code(s): I25.10 - Atherosclerotic heart disease of [place] coronary artery without angina pectoris Discussion w patient/family: The assessment and plan as outlined above was discussed with the patient and/or family members who expressed understanding and agreement. All questions were answered. Thank you for involving us in the care of your patient. Please call with any questions. Subjective Principal diagnosis: anterolateral STEMI Interval history: Patient denies any chest pain, shortness of breath, palpitations. Reports mild right groin tenderness. Objective Vital Signs, Last 4 Hours Temp Pulse Resp BP Pulse Ox 11/30/18 07:58 98.4 F 75 14 103/51 98 11/30/18 05:40 98.2 F 76 12 96/53 98 General: Conversant, No Apparent Distress HEENT: Atraumatic, Normocephaly, Mucus Membranes Moist Neck: No JVD, Normal carotid pulses Cardiac: Reg Rate and Rhythm, Normal S1 and S2, No Murmur Lungs: Normal Breath Sounds, No Wheeze, Rales, Rhonchi Neuro: Alert and responsive, No focal deficits noted Abdomen: Soft, Non-Tender Skin: No rashes noted on visualized skin, Other (Right groin site dry and intact, mild ecchymosis, no hematoma, no bleeding, right PT and DP pulses 2+ palpable) Musculoskeletal: No Chest Wall Tenderness Extremities: No Clubbing, No Cyanosis, No Edema, Normal Pulses Results 11/29/18 07:00 11/29/18 07:00 Lab Results Laboratory Tests 11/27/18 11/28/18 11/29/18 02:25 10:15 07:00 Hgb 11.7 Hct 34.3 L Potassium Creatinine Est GFR (Non-Af Amer) Troponin I 0.27 H* 53.32 H* LDL Cholesterol, Calc 95 11/29/18 11/29/18 07:00 13:32 Hgb Hct Potassium 3.4 L Creatinine 0.81 Est GFR (Non-Af Amer) > 60 Troponin I 24.01 H* LDL Cholesterol, Calc ITS Impressions Chest X-Ray 11/27/18 02:22 IMPRESSION: No evidence for acute cardiopulmonary process. D/ / Mitch Rueda MD / Mitch Rueda MD Interpreting Provider: Mitch Rueda MD Echocardiogram 11/27/18 04:15 Impressions: LVEF 50-55%. Mild segmental left ventricular systolic dysfunction. Normal left ventricular diastolic function. Normal right ventricular structure and function. Mild tricuspid regurgitation. Mild pulmonary hypertension. Left Ventricular Wall Motion: Rest Echo Findings The apex, apical inferior, apical anterior, mid anterior, apical septal, mid inferior septal, apical lateral, mid anterior septal and basal anterior septal song were hypokinetic. All other wall segments showed normal motion. Findings: Study Quality * Technically adequate exam. ECG Findings * Normal sinus rhythm. Left Ventricle * LVEF 50-55%. * Mild segmental left ventricular systolic dysfunction. * Normal LV chamber size, wall thickness. * Normal left ventricular diastolic function. Right Ventricle * Normal right ventricular structure and function. Left Atrium * Normal left atrial size. Right Atrium * Normal right atrial size. Interatrial Septum * Interatrial septum not well evaluated. * No evidence of PFO by color Doppler. Aortic Valve * Aortic valve not well visualized. * No aortic stenosis. * No aortic regurgitation. Mitral Valve * Mildly calcified mitral valve leaflets. * No mitral stenosis. * Trace mitral regurgitation. Tricuspid Valve * Normal tricuspid valve structure. * No tricuspid stenosis. * Mild tricuspid regurgitation. * Estimated RVSP is 39 mmHg. * Estimated RA pressure is 8 mmHg. * Mild pulmonary hypertension. Pulmonic Valve * Pulmonic valve is not well visualized. * No pulmonic stenosis. * No pulmonic regurgitation. Aorta * Normally sized aortic root. Pericardium * The pericardium appears normal. IVC * The IVC is not dilated. * < 50% respiratory change. Active Medications Acetaminophen (Tylenol) 500 mg PO Q6H PRN PRN Reason: Pain/Headache Stop: 05/29/19 11:15 Last Admin: 11/30/18 03:18 Dose: 500 mg Alprazolam (Xanax) 0.5 mg PO BID PRN; Protocol PRN Reason: Anxiety Stop: 05/29/19 11:15 Aspirin (Aspirin) 81 mg PO DAILY DIM[facility]RIOS Stop: 05/29/19 09:01 Last Admin: 11/30/18 08:20 Dose: 81 mg Atorvastatin Calcium (Lipitor) 40 mg PO HS [facility] Stop: 05/29/19 21:01 Last Admin: 11/29/18 19:40 Dose: 40 mg Bupropion HCl (Wellbutrin Xl) 300 mg PO DAILY [facility] Stop: 05/29/19 09:01 Last Admin: 11/30/18 08:20 Dose: 300 mg Fluoxetine HCl (Prozac) 60 mg PO DAILY [facility] Stop: 05/29/19 11:16 Last Admin: 11/30/18 08:21 Dose: 60 mg Metoprolol Tartrate (Lopressor) 5 mg IVP Q6HR PRN PRN Reason: SEE COMMENTS Stop: 05/29/19 04:15 Metoprolol Tartrate (Lopressor) 25 mg PO BID [facility] Stop: 05/30/19 21:01 Last Admin: 11/30/18 08:21 Dose: 25 mg Morphine Sulfate (Morphine Sulfate) 4 mg IVP Q3H PRN PRN Reason: Severe Pain (7-10) CHEST PAIN Stop: 05/29/19 04:15 Last Admin: 11/29/18 17:12 Dose: 4 mg Nitroglycerin (Nitroglycerin) 0.4 mg SL Q5MIN PRN PRN Reason: Chest Pain Stop: 05/29/19 02:27 Omeprazole (Prilosec) 20 mg PO DAILY@0730 [facility]; Protocol Stop: 05/30/19 07:31 Last Admin: 11/30/18 08:20 Dose: 20 mg Ondansetron HCl (Zofran) 4 mg IVP Q6HR PRN; Protocol PRN Reason: Nausea And Vomiting Stop: 05/29/19 10:25 Last Admin: 11/29/18 20:57 Dose: 4 mg Ranolazine (Ranexa) 1,000 mg PO BID [facility] Stop: 05/30/19 09:16 Last Admin: 11/30/18 08:20 Dose: 1,000 mg Ticagrelor (Brilinta) 90 mg PO BID [facility] Stop: 05/29/19 09:01 Last Admin: 11/30/18 08:21 Dose: 90 mg - Imaging and Cardiology Echo: report reviewed Cardiac cath: report reviewed - VTE Reasons for not Prescribing Prophylaxis: Not indicated-Anticoagulated or INR therapeutic Consult Discharge Plan - Plan Instructions: Left Heart Catheterization (DC), Right Heart Catheterization (DC) Referrals: Piero Hill MD [Partnered Physician] - 12/07/18 3:00 pm Michael Weber MD [Partnered Physician] - (office will call patient at home with follow up appointment)
[2018-11-30] MEDS: *HR* Morphine 2 MG/ML SYRINGE IVP PRN ×2 (13:48→17:30)
[2018-11-30] MEDS: Ondansetron 4 MG/2 ML VIAL IVP PRN (17:22)
[2018-11-30] MEDS ORDERED: Perflutren Lipid Microsphere 1.3 ML in 0.9 % Sodium Chloride 8.7 ML IVP ONE (17:43)
[2018-12-01] MEDS: Ondansetron 4 MG/2 ML VIAL IVP PRN (04:15)
[2018-12-01 07:58] VITALS: BP 110/55
[2018-12-01] MEDS: FLUoxetine 20 MG CAPSULE PO SCH (07:58)
[2018-12-01] MEDS: *HR* Ticagrelor 90 MG TABLET PO SCH (07:58)
[2018-12-01] MEDS: Ranolazine 500 MG TAB.ER.12H PO SCH (07:58)
[2018-12-01] MEDS: BuPROPion XL (24 HR) 150 MG TABLET PO SCH (07:58)
[2018-12-01] MEDS: Aspirin 81 MG TAB.CHEW PO SCH (07:58)
--- NOTE | 2018-12-01 11:33 | Discharge Summary ---
Date of Encounter: 12/01/18 Time of Encounter: 11:30 - Discharge Diagnosis (1) CAD (coronary artery disease) Priority: Primary Status: Acute Qualifiers: Coronary Disease-Associated Artery/Lesion type: [place] artery [place] vs. transplanted heart: [place] heart Associated angina: angina presence unspecified Qualified Code(s): I25.10 - Atherosclerotic heart disease of [place] coronary artery without angina pectoris - Hospital Course Hospital course: Ms. Bauer is a 43 year old female presented on 11/27/18, ECG met criteria for acute anterolateral STEMI. LHC: moderate, non-obstructive CAD; 50% pLAD with heavy tubular stenosis, FFR 0.82, 40% pLCx with hazy tubular stenosis, FFR 0.92; 50% pOM; minimal RCA. TTE: LVEF 50-55%, mild segmental LV systolic dysfunction, imld TR, mild PH. Prior TTE 2016 shows LVEF 60-65% with normal wall motion. Developed during hospital stay-- chest tightness/indigestion with neck tightness. Repeat Cath: Impressions: There is severe segmental LV Dysfunction EF 30% Recommendations: Optimal medical therapy of patient's disease. Aggressive risk factor modification but avoidance of strenuous physical activity both intense aerobic activity and heavy weight lifiting. Cardiac rehab Consider workup for fibromuscular dysplasia as well as full body CTA to assess for aneurysm Head CTA tomorrow to assess for aneurysm given history of headaches Lesion Findings/Interventions * Left Main Coronary Artery The LMCA is angiographically free of disease. * Left Anterior Descending The LAD has proximal 50% stenosis, mid 50% stenosis and mid-distal vessel is small The 1st Diagonal is angiographically free of significant disease. * Circumflex The Circumflex is angiographically free of significant disease. The 1st Marginal has 60% stenosis * Right Coronary Artery There is a 40% stenosis in the Proximal RCA - spasm during cath. Previous coronary angio 2 days ago without obstructive disease Head CT with no acute findings. Preliminary carotid duplex showed bilateral normal carotids. Repeat limited echo with EF 35%, no evidence of thrombus. Chest pain-free. On asa, Brilinta, Ranexa, statin. Will add low dose BB as well-- extra script for Coreg 3.125mg PO BID provided (SBP 110's) Postprocedure education provided. All questions answered. Prepping for discharge home today in stable condition. Will need close outpatient follow-up and genetic counseling. No Lifevest warranted-- discussed and reviewed with Dr. House. - Time Spent with Patient Total time spent providing and/or coordinating discharge services: Greater than 30 minutes - Discharge Medications Prescriptions: Nitroglycerin 0.4 mg SL Q5MIN PRN #30 tab.subl PRN Reason: Chest Pain Atorvastatin [Lipitor] 40 mg PO HS #30 tablet Ranolazine [Ranexa] 1,000 mg PO BID #60 tab.er.12h Ticagrelor [Brilinta] 90 mg PO BID #60 tablet Home Medications: ALPRAZolam [Xanax 0.25 MG Tablet] 0.25 - 0.5 mg PO BID PRN 04/16/17 [History] Acetaminophen [Tylenol] 500 mg PO Q6H PRN 04/16/17 [History] Bupropion HCl [Wellbutrin Xl] 300 mg PO DAILY 04/16/17 [History] Cholecalciferol (D-3) [Vitamin D] 1,000 unit PO DAILY 04/16/17 [History] FLUoxetine HCl [Prozac] 60 mg PO DAILY 04/16/17 [History] Omeprazole [PriLOSEC] 20 mg PO DAILY 04/16/17 [History] Aspirin 81 mg PO DAILY tab.chew 12/01/18 [Rx] Atorvastatin [Lipitor] 40 mg PO HS #30 tablet 12/01/18 [Rx] Nitroglycerin 0.4 mg SL Q5MIN PRN #30 tab.subl 12/01/18 [Rx] Ranolazine [Ranexa] 1,000 mg PO BID #60 tab.er.12h 12/01/18 [Rx] Ticagrelor [Brilinta] 90 mg PO BID #60 tablet 12/01/18 [Rx] Allergies/Adverse Reactions: Allergy/AdvReac Type Severity Reaction Status Date / Time meperidine [From Demerol] Allergy See Verified 11/27/18 02:26 Comments Date of admission: 11/27/18 03:24 Primary care physician: PCP NONE Consults: 11/27/18 04:15 Consult to Cardiac Rehabilitation-Phase1 [CONS] Routine Comment: Reason for Consult: AMI Call Completed: Yes Consult to Nurse Navigator [CONS] Routine Comment: Discharging clinician: Matt Rolle Anticipated date of discharge: 12/01/18 Physical Examination Vital Signs, Last 4 Hours Temp Pulse Resp BP Pulse Ox 12/01/18 08:12 79 12/01/18 07:57 99.1 F 84 16 110/55 93 General: Conversant, No Apparent Distress HEENT: Atraumatic, Normocephaly, Mucus Membranes Moist Neck: No JVD, Normal carotid pulses Cardiac: Reg Rate and Rhythm, Normal S1 and S2, No Murmur Lungs: Normal Breath Sounds, No Wheeze, Rales, Rhonchi Neuro: Alert and responsive, No focal deficits noted Abdomen: Soft, Non-Tender Skin: No rashes noted on visualized skin Musculoskeletal: No Chest Wall Tenderness Extremities: No Clubbing, No Cyanosis, No Edema, Normal Pulses - Patient Status Disposition: Home, Self-Care Condition: Fair Overall status at discharge: patient is progressing back to baseline - Discharge Instructions Instructions: Left Heart Catheterization (DC), Right Heart Catheterization (DC) Follow Up With: Piero Hill MD [Partnered Physician] - 12/07/18 3:00 pm Michael Weber MD [Partnered Physician] - (office will call patient at home with follow up appointment) - VTE Reasons for not Prescribing Prophylaxis: Not indicated-Anticoagulated or INR therapeutic
== END 2018-12-01 13:32 | disposition home or self-care (01) | DRG 280 ==
LOC: EMEROOARM 02:17 → ICNU 03:05 → EMEROOARM 03:07 → ICNU 03:24 → 2NENU 16:42 → 2NNU 11-29 15:03
PROVIDERS: ADMIT Internal Medicine Cardiovascular Disease; ATTEND Student in an Organized Health Care Education/Training Program